=== PATIENT | male | born 1965 | race Caucasian/White ===

== ENCOUNTER 2018-01-24 10:18 | Outpatient (CLI) | payer MEDICAID, SELFPAY ==
[2018-01-24] MEDS: Omnipaque 300 MG/ML 10 ML BTL IJ (11:18)
[2018-01-24] MEDS: Bupivacaine 0.5% Pres-Free 10 ML VIAL 5 ML IJ (11:18)
[2018-01-24] MEDS: methylPREDNISolone ACETATE 80 MG/ML VIAL IM (11:19)
--- NOTE | 2018-01-24 12:20 | W.PROCNOTE ---
Date of service: 01/24/18 Time of Service: 10:48 Procedure Note Date of procedure: 01/24/18 Procedure: Left Hip Injection with Fluoroscopic Guidance Surgeon/Proceduralist/Physician: Juan Pablo Carcamo Procedure Diagnosis: Left Hip Osteoarthritis Procedure Indications: Jay has had persistent pain of the LEFT hip and groin. Noninvasive measures have been tried. Jay had a previous injection which provided significant relief for a duration of time. He has been trying to deal with the pain conservatively but now is limited in all aspects of his life. A re-injection under fluoroscopy was recommended. I had discussed the risks of the procedure and the patient elected to proceed. Procedure Description: Jay was greeted in the flouroscopy room. The correct side was identified and the consent was reviewed with the patient and signed. The patient was then placed in the supine position on the fluoroscopy table. The LEFT hip was then prepped with Chloraprep. The anterolateral injection starting point was identiifed by bony landmarks and fluoroscopy. The skin and soft tissue in the tract of the injection was anesthetized with 1% Lidocaine. A spinal needle was then inserted deep into the hip joint at the level of the lateral femoral neck under fluoroscopic guidance. A small amount of Omnipaque solution was injected to confirm intraarticular placement. Once confirmed, the hip was injected with 6cc of 0.5% Bupivicaine and 80mg of Depo-Medrol. A bandaid was placed on the injection site. The patient tolerated the procedure well and noted improvement in pre-injection pain.
== END 2018-01-24 10:38 ==
PROVIDERS: PCP Emergency Medicine; Visit Provider Student in an Organized Health Care Education/Training Program
DX: M25.552 Pain in left hip (principal); M16.12 Unilateral primary osteoarthritis, left hip
CPT/HCPCS: 20610; 77002; J1040

== ENCOUNTER 2018-06-06 15:40 | Outpatient (CLI) | payer MEDICAID, SELFPAY ==
[2018-06-06 15:54] LABS: HCT 43.2 % (40.0-50.0); HGB 14.6 g/dL (13.5-17.5); Mean Corp. HGB Concentration 33.8 g/dL (32.0-36.0); Mean Corpuscular Hemoglobin 28.7 pg (27.0-33.0); Mean Corpuscular Volume 84.9 fL (80-95); Mean Platelet Volume 11.4 fL (8.0-11.0); Platelet Count 202 x1000/uL (130-400); RBC 5.09 m/cumm (4.50-6.00); RBC Distribution Width 12.8 % (11.8-14.1); White Blood Cell Count 5.96 k/cumm (4.4-10.8)
[2018-06-06 17:04] LABS: BUN 24 mg/dL (7-18); CREATININE 1.61 mg/dL (0.70-1.30); Chloride 103 mmol/L (98-107); Cholesterol 249 mg/dL (50-200); Estimated GFR 45.29 (mL/min/1.73m2); Glucose 96 mg/dL (70-100); HDL Cholesterol 47 mg/dL (40-60); LDL CHOLESTEROL 165 mg/dL (<100); Potassium 4.1 mmol/L (3.5-5.1); Sodium 141 mmol/L (136-145); Triglyceride 345 mg/dL (30-150)
== END 2018-06-06 16:00 ==
PROVIDERS: PCP Emergency Medicine; Visit Provider Emergency Medicine
DX: I10 Essential (primary) hypertension (principal); Z82.49 Family history of ischemic heart disease and other diseases of the circulatory system
CPT/HCPCS: 36415; 80048; 80061; 83721; 85027

== ENCOUNTER 2018-06-12 00:13 | Outpatient (CLI) | payer MEDICAID, SELFPAY ==
--- NOTE | 2018-06-12 06:47 | MERGEMPI_ITS ---
*[facility]* *[facility]* [address] [place] [address] Myocardial Perfusion Imaging - SPECT Charles protocol Date of study: 06/12/2018 (Report amended ) *PATIENT PRESENTATION* Height: 182.9cm (72in) Blood Pressure: Weight: 86.4kg (190lb) BSA: 2.1m^2 Referring physician: Brandon Dugan Ordering physician: Virgilio Matthews Impressions: - Normal perfusion by Tc99m Sestamibi Imaging. - Abnormal contraction consistent with cardiomyopathy. Summary: 1. Myocardial perfusion imaging: No myocardial perfusion defects noted. 2. The calculated left ventricular ejection fraction after stress: 42%. LV global systolic function is mild to moderately reduced. Diffuse left ventricular regional motion abnormalities. 3. Stress ECG conclusions: The stress ECG is negative. Douglas treadmill score: 13. This score predicts a low risk of cardiac events. 4. Stress: The target heart rate was achieved. The heart rate response to stress is normal. There is a normal resting blood pressure with an appropriate response to stress. The patient experienced no chest pain during stress. Exercise capacity is above normal for age. 5. Treadmill exercise testing was performed using the Charles protocol. The patient exercised for 13 min 17 sec, to protocol stage 4, to a maximal work rate of 14.4mets. Exercise was terminated due to fatigue. Recommendations: Transthoracic echocardiography should be performed in order to evaluate LV function. Indication: R07.9. 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 HE IS PHYSICALLY ACTIVE. PT EXPERIENCED AN EPISODE OF SUBSTERNAL CHEST PRESSURE WITH RADIATION DOWN THE LEFT ARM ASSOCIATED WITH LIGHTHEADED NESS AND DIZZYNESS AFTER A [employer]ING DAY ABOUT 3 WEEKS AGO. HE HAS HAD NO FURTHER EPISODES SINCE. Risk factors: PATIENT FATHER AT AGE 66 OF AN HI. Family history of coronary artery disease. Dyslipidemia. Cholesterol: 262mg/dl. HDL: 47mg/dl. LDL: 165mg/dl. Triglycerides: 345mg/dl. ALLERGIES: NO KNOWN ALLERGIES. MEDICATIONS: ASPIRIN 81 MG DAILY. ROSUVASTATIN 10 MG DAILY. Imaging Technique: Protocol: Charles protocol. Acquisition: Gated SPECT; 1 day - rest/stress. The patient was imaged in the supine position. Attenuation correction used. Isotope administration: - Rest. Tc[99m]-sestamibi. Dose: 10.4mCi. Injection time: 11:30 AM. Injection to stress time: 00:45. - Stress. Tc[99m]-sestamibi. Dose: 32mCi. Injection time: 01:40 PM. 1-2 min before end of exercise Baseline ECG: SINUS BRADYCARDIA. HR 51 BPM. Sinus bradycardia. Stress protocol: + +--+ + !Stage !HR!BP (mmHg) ! + +--+ + !Baseline supine !51!140/90 (107)! + +--+ + !Baseline standing!59!140/88 (105)! + +--+ + * Stress results: Maximal heart rate during stress was 167bpm (99% of maximal predicted heart rate). The maximal predicted heart rate was 168bpm. The target heart rate was achieved. The heart rate response to stress is normal. There is a normal resting blood pressure with an appropriate response to stress. The rate-pressure product for the peak heart rate and blood pressure was 8260mm Hg/min. The patient experienced no chest pain during stress. Exercise capacity is above normal for age. Stress ECG: TREADMILL PORTION OF STRESS TEST ENDED IN 13 MINUTES & 17 SECONDS DUE TO FATIGUE. NORMAL HEART RATE AND BLOOD PRESSURE RESPONSE TO EXERCISE. MAX HR = 167 % OF TARGET = 99 NO ECTOPY APPROXIMATE METS ACHIEVED = 14.35 [address] UPWARD SLOPING [address] SEGMENT DEPRESSIONS IN LEADS V3, V4, V5 & V6 DURING PEAK EXERCISE & RETURNED TO BASELINE UPON IMMEDIATE RECOVERY. ABOVE AVERAGE FUNCTIONAL CAPACITY FOR EXERCISE. The stress ECG is negative. Douglas treadmill score: 13. This score predicts a low risk of cardiac events. Myocardial perfusion: Imaging information: gated. Left ventricular size is normal. No myocardial perfusion defects noted. Ventricular Function (Wall Motion): The calculated left ventricular ejection fraction after stress: 42%. LV global systolic function is mild to moderately reduced. Diffuse left ventricular regional motion abnormalities. Study data: Brandon Dugan MD supervised and was readily available during the procedure. This study was interpreted by [facility]. Study status: Routine. Consent: The risks, benefits, and alternatives to the procedure were explained to the patient and informed consent was obtained. Procedure: Initial setup. A baseline ECG was recorded. Surface ECG leads and manual cuff blood pressure measurements were monitored. Heart sounds: Normal. Lung sounds: Normal. Treadmill exercise testing was performed using the Charles protocol. The patient exercised for 13 min 17 sec, to protocol stage 4, to a maximal work rate of 14.4mets. Exercise was terminated due to fatigue. Study completion: All catheters inserted during the procedure were removed. The patient tolerated the procedure well and was discharged from the lab. Discharge: The patient left the laboratory in stable condition. Birthdate: Patient birthdate: 1965. Sex: Gender: male. Study date: Study date: 06/12/2018. Study time: 00:01 AM. Signature Documentation: - The imaging portion of this study was interpreted by [facility] [employer] Brandon Dugan MD. - The Stress ECG portion of this study was interpreted by Brandon Dugan MD. Electronically signed by Brandon Dugan 06/12/2018 16:06
== END 2018-06-12 00:33 ==
PROVIDERS: PCP Emergency Medicine; Visit Provider Emergency Medicine
DX: R07.9 Chest pain, unspecified (principal); I42.9 Cardiomyopathy, unspecified; I10 Essential (primary) hypertension; E78.5 Hyperlipidemia, unspecified; Z82.49 Family history of ischemic heart disease and other diseases of the circulatory system
CPT/HCPCS: 78452; 93017

== ENCOUNTER 2018-06-18 11:41 | Outpatient (CLI) | payer MEDICAID, SELFPAY ==
[2018-06-18 12:45] LABS: Abs Immature Grans 0.01 k/cumm (0.0-0.09); Absolute Basophil Count 0.02 k/cumm (0.0-0.2); Absolute Eosinophil Count 0.06 k/cumm (0.0-0.7); Absolute Lymphocyte Count 1.19 k/cumm (1.2-3.4); Absolute Monocyte Count 0.32 k/cumm (0.11-0.7); Absolute Neutrophil Count 3.38 k/cumm (1.2-6.7); Basophils % 0.4; Eosinophils % 1.2; HCT 44.2 % (40.0-50.0); Immature Grans % 0.2; Lymphocytes % 23.9; Mean Corp. HGB Concentration 33.9 g/dL (32.0-36.0); Mean Corpuscular Hemoglobin 28.7 pg (27.0-33.0); Mean Corpuscular Volume 84.7 fL (80-95); Mean Platelet Volume 11.8 fL (8.0-11.0); Monocytes % 6.4; Neutrophils % 67.9; Platelet Count 203 x1000/uL (130-400); RBC 5.22 m/cumm (4.50-6.00); RBC Distribution Width 12.8 % (11.8-14.1); White Blood Cell Count 4.98 k/cumm (4.4-10.8)
[2018-06-18 13:20] LABS: D-Dimer 496 ng/mlFEU (<500)
[2018-06-18 13:42] LABS: ALT 25 U/L (12-78); AST 19 U/L (15-37); Albumin 4.1 g/dL (3.4-5.0); Alkaline Phosphatase 57 U/L (46-116); Anion Gap 9.6 mmol/L (3-11); BUN 22 mg/dL (7-18); Bilirubin, Total 0.6 mg/dL (0.2-1.0); CO2 27.4 mmol/L (21.0-32.0); CREATININE 1.08 mg/dL (0.70-1.30); Calcium 9.4 mg/dL (8.5-10.1); Chloride 102 mmol/L (98-107); Ferritin 83 ng/mL (8-388); Glucose 102 mg/dL (70-100); Potassium 4.1 mmol/L (3.5-5.1); Sodium 139 mmol/L (136-145); Total Protein 7.1 g/dL (6.4-8.2); Vitamin B12 445 pg/mL (193-986)
[2018-06-18 13:44] LABS: ESR 9 MM/HR (1-20)
[2018-06-18 14:10] LABS: NT-proBNP 19 pg/mL
[2018-06-18 14:12] LABS: C-Reactive Protein < 0.05 mg/dL (0.0-0.3)
== END 2018-06-18 12:01 ==
PROVIDERS: PCP Emergency Medicine; Visit Provider Emergency Medicine
DX: I42.9 Cardiomyopathy, unspecified (principal); E03.9 Hypothyroidism, unspecified; I50.9 Heart failure, unspecified; L65.9 Nonscarring hair loss, unspecified
CPT/HCPCS: 36415; 80053; 85652; 82607; 82728; 83880; 84443; 85025; 85379; 86140

== ENCOUNTER 2018-06-21 00:20 | Outpatient (CLI) | payer MEDICAID, SELFPAY ==
--- NOTE | 2018-06-21 13:55 | MERGE_ITS ---
*The * *[facility]* [address] [place] [address] Date of study: 06/21/2018 Transthoracic Echocardiography M-mode, complete 2D, complete spectral Doppler, and color Doppler *STUDY CONCLUSIONS* Summary: 1. Left ventricle: The cavity size was normal. Wall thickness was normal. Systolic function was at the lower limits of normal. The estimated ejection fraction was 50-55%. Wall motion was normal; there were no regional wall motion abnormalities. 2. Right ventricle: The cavity size was normal. Systolic function was normal. 3. Aortic valve: There was trivial regurgitation. 4. Mitral valve: Mildly calcified annulus. Mildly thickened leaflets. There was mild regurgitation. 5. Pulmonary arteries: Pulmonary systolic pressure was within the normal range, in the range of 25mm Hg to 30mm Hg. 6. Inferior vena cava: The vessel was patent and normal in size. The respirophasic diameter changes were in the normal range (greater than or equal to 50%), consistent with normal central venous pressure. *PATIENT PRESENTATION* Height: 182.9cm ((72in) ) S/D Pressure: 133 / 82 Weight: 88.5kg ((194.6lb) ) BSA: 2.13m^2 Test start time: 02:00 PM. Test stop time: 03:10 PM. ORDERING Virgilio Matthews REFERRING Virgilio Matthews PERFORMING Unknown PERFORMING [facility] FLOW MANAGER Benita Urias, (R)(CT), [facility] REFERRING Do Byron Eid *PROCEDURE DATA* Procedure information: The patient was identified by two identifiers. This study was interpreted by [facility]. Pertinent images and digital data are archived for permanent storage and are available for subsequent review. No prior study was available for comparison. Study status: Routine. Transthoracic echocardiography. M-mode, complete 2D, complete spectral Doppler, and color Doppler. A Transthoracic Echocardiogram was performed. Scanning was performed from the parasternal, apical, subcostal, and suprasternal notch acoustic windows. Images were obtained using an [id number] cardiac ultrasound machine. Image quality was adequate. Study completion: The patient tolerated the procedure well. There were no complications. History: PMH: Cardiomyopathy i42.9 *CARDIAC ANATOMY* Left ventricle: The cavity size was normal. Wall thickness was normal. Systolic function was at the lower limits of normal. The estimated ejection fraction was 50-55%. Wall motion was normal; there were no regional wall motion abnormalities. Aortic valve: Trileaflet; normal thickness leaflets. Mobility was not restricted. Doppler: Transvalvular velocity was within the normal range. There was no stenosis. There was trivial regurgitation. VTI ratio of LVOT to aortic valve: 0.79. Valve area (VTI): 2.7cm^2. Indexed valve area (VTI): 1.3cm^2/m^2. Peak velocity ratio of LVOT to aortic valve: 0.86. Valve area (Vmax): 3cm^2. Indexed valve area (Vmax): 1.4cm^2/m^2. Mean velocity ratio of LVOT to aortic valve: 0.8. Valve area (Vmean): 2.8cm^2. Indexed valve area (Vmean): 1.3cm^2/m^2. Mean gradient (S): 6mm Hg. Peak gradient (S): 10.5mm Hg. Aorta: Aortic root: The aortic root was normal in size. Ascending aorta: The ascending aorta was normal in size. Mitral valve: Mildly calcified annulus. Mildly thickened leaflets. Mobility was not restricted. Doppler: Transvalvular velocity was within the normal range. There was no evidence for stenosis. There was mild regurgitation. Valve area by pressure half-time: 3.6cm^2. Indexed valve area by pressure half-time: 1.7cm^2/m^2. Left atrium: The atrium was normal in size. Right ventricle: The cavity size was normal. Systolic function was normal. Pulmonic valve: The pulmonary valve appears to be grossly normal. Doppler: Transvalvular velocity was within the normal range. There was no evidence for stenosis. There was trivial regurgitation. Tricuspid valve: Structurally normal valve. Doppler: Transvalvular velocity was within the normal range. There was no evidence for stenosis. There was trivial regurgitation. Pulmonary artery: The main pulmonary artery was normal-sized. Pulmonary systolic pressure was within the normal range, in the range of 25mm Hg to 30mm Hg. Right atrium: The atrium was normal in size. Pericardium: There was no pericardial effusion. Systemic veins: Inferior vena cava: Well visualized. The vessel was patent and normal in size. The respirophasic diameter changes were in the normal range (greater than or equal to 50%), consistent with normal central venous pressure. Baseline ECG: Sinus bradycardia. Measurements Left ventricle Value Reference LV ID, ED, PLAX 5.6 cm 3.5 - 6.0 LV ID, ES, PLAX 4.0 cm 2.1 - 4.0 LV PW thickness, ED, PLAX 1.0 cm LV end-diastolic volume, 1-p A2C 115 ml LV ejection fraction, 1-p A2C 54 % LV end-diastolic volume, 1-p A4C 141 ml LV ejection fraction, 1-p A4C 54 % LV e', lateral 0.1 m/sec LV E/e', lateral 7 LV e', medial 0.096 m/sec LV E/e', medial 7 LV e', average 0.098 m/sec LV E/e', average 7 Ventricular septum Value Reference IVS thickness, ED, PLAX 1.0 cm LVOT Value Reference LVOT ID, A-P 2.1 cm LVOT area 3.5 cm^2 LVOT peak velocity, S 1.4 m/sec LVOT mean velocity, S 0.94 m/sec LVOT VTI, S 26.0 cm LVOT peak gradient, S 7.8 mm Hg LVOT mean gradient, S 3.9 mm Hg Stroke volume (SV), LVOT DP 90 ml Stroke index (SV/bsa), LVOT DP 42 ml/m^2 Aortic valve Value Reference Aortic valve peak velocity, S 1.6 m/sec Aortic valve mean velocity, S 1.18 m/sec Aortic valve VTI, S 33.0 cm Aortic mean gradient, S 6 mm Hg Aortic peak gradient, S 10.5 mm Hg VTI ratio, LVOT/AV 0.79 Aortic valve area, VTI 2.7 cm^2 Velocity ratio, peak, LVOT/AV 0.86 Aortic valve area, peak velocity 3 cm^2 Velocity ratio, mean, LVOT/AV 0.8 Aortic valve area, mean velocity 2.8 cm^2 Aortic valve area/bsa, mean velocity 1.3 cm^2/m^2 Aorta Value Reference Aortic root ID, ED 3.3 cm Ascending aorta ID, A-P, S 3.5 cm RVOT Value Reference RVOT VTI, S 18.7 cm Left atrium Value Reference LA ID, A-P, ES 3.8 cm LA ID/bsa, A-P 1.8 cm/m^2 <=2.2 LA area, ES, A4C 22.9 cm^2 8.8 - 23.4 LA area, ES, A2C 20 cm^2 LA volume, ES, 2-p 60 ml LA volume/bsa, ES, 2-p 28 ml/m^2 LA/aortic root ratio 1.16 Mitral valve Value Reference Mitral E-wave peak velocity 0.66 m/sec Mitral A-wave peak velocity 0.57 m/sec Mitral deceleration time 212 ms 150 - 230 Mitral pressure half-time 62 ms Mitral E/A ratio, peak 1.15 Mitral valve area, PHT, DP 3.6 cm^2 Pulmonary veins Value Reference Pulmonary vein peak velocity, S 0.42 m/sec Pulmonary vein peak velocity, D 0.47 m/sec Pulmonary vein velocity ratio, peak, 0.91 S/D Pulmonary vein A-wave reversal peak 0.29 m/sec velocity Tricuspid valve Value Reference Tricuspid regurg peak velocity 2.5 m/sec Tricuspid peak RV-RA gradient 25.2 mm Hg Right atrium Value Reference RA area, ES, A4C (H) 20.7 cm^2 8.3 - 19.5 Legend: (L) and (H) kris values outside specified reference range. I have personally reviewed the images and have reviewed and edited the reported findings. Electronically signed by Basia Mueller 06/22/2018 09:56
== END 2018-06-21 00:40 ==
PROVIDERS: PCP Emergency Medicine; Visit Provider Emergency Medicine
DX: I42.9 Cardiomyopathy, unspecified (principal); R07.9 Chest pain, unspecified; I34.0 Nonrheumatic mitral (valve) insufficiency; I10 Essential (primary) hypertension
CPT/HCPCS: 93306

== ENCOUNTER 2018-07-04 15:37 | Outpatient (CLI) | payer MEDICAID, SELFPAY ==
[2018-07-04 16:19] LABS: HCT 43.3 % (40.0-50.0); HGB 14.7 g/dL (13.5-17.5); Mean Corp. HGB Concentration 33.9 g/dL (32.0-36.0); Mean Corpuscular Hemoglobin 28.5 pg (27.0-33.0); Mean Corpuscular Volume 84.1 fL (80-95); Mean Platelet Volume 11.4 fL (8.0-11.0); Platelet Count 214 x1000/uL (130-400); RBC 5.15 m/cumm (4.50-6.00); White Blood Cell Count 5.05 k/cumm (4.4-10.8)
[2018-07-04 16:51] LABS: ALT 31 U/L (12-78); AST 20 U/L (15-37); Albumin 4.1 g/dL (3.4-5.0); Alkaline Phosphatase 61 U/L (46-116); Anion Gap 9.4 mmol/L (3-11); BUN 20 mg/dL (7-18); Bilirubin, Total 0.6 mg/dL (0.2-1.0); CO2 28.6 mmol/L (21.0-32.0); CREATININE 1.18 mg/dL (0.70-1.30); Calcium 9.3 mg/dL (8.5-10.1); Chloride 103 mmol/L (98-107); Cholesterol 217 mg/dL (50-200); Glucose 88 mg/dL (70-100); HDL Cholesterol 57 mg/dL (40-60); LDL CHOLESTEROL 130 mg/dL (<100); Sodium 141 mmol/L (136-145); Total Protein 6.8 g/dL (6.4-8.2); Triglyceride 228 mg/dL (30-150)
== END 2018-07-04 15:57 ==
PROVIDERS: PCP Emergency Medicine; Visit Provider Dermatology
DX: D63.1 Anemia in chronic kidney disease (principal); N18.9 Chronic kidney disease, unspecified; Z79.899 Other long term (current) drug therapy
CPT/HCPCS: 36415; 80053; 80061; 83721; 85027

== ENCOUNTER 2018-08-15 16:39 | Outpatient (CLI) | payer MEDICAID, SELFPAY ==
[2018-08-15 17:02] LABS: Abs Immature Grans 0.01 k/cumm (0.0-0.09); Absolute Basophil Count 0.02 k/cumm (0.0-0.2); Absolute Eosinophil Count 0.08 k/cumm (0.0-0.7); Absolute Lymphocyte Count 1.69 k/cumm (1.2-3.4); Absolute Monocyte Count 0.35 k/cumm (0.11-0.7); Absolute Neutrophil Count 3.11 k/cumm (1.2-6.7); Basophils % 0.4; Eosinophils % 1.5; HCT 45.3 % (40.0-50.0); HGB 15.2 g/dL (13.5-17.5); Immature Grans % 0.2; Lymphocytes % 32.1; Mean Corp. HGB Concentration 33.6 g/dL (32.0-36.0); Mean Corpuscular Volume 83.4 fL (80-95); Mean Platelet Volume 11.1 fL (8.0-11.0); Monocytes % 6.7; Neutrophils % 59.1; Platelet Count 206 x1000/uL (130-400); RBC 5.43 m/cumm (4.50-6.00); White Blood Cell Count 5.26 k/cumm (4.4-10.8)
[2018-08-15 19:03] LABS: ALT 33 U/L (12-78); AST 22 U/L (15-37); Alkaline Phosphatase 52 U/L (46-116); Anion Gap 8.5 mmol/L (3-11); BUN 25 mg/dL (7-18); Bilirubin, Total 0.5 mg/dL (0.2-1.0); CO2 29.5 mmol/L (21.0-32.0); CREATININE 1.33 mg/dL (0.70-1.30); Calcium 9.2 mg/dL (8.5-10.1); Chloride 103 mmol/L (98-107); Estimated GFR 56.46 (mL/min/1.73m2); Glucose 87 mg/dL (70-100); Potassium 4.1 mmol/L (3.5-5.1); Sodium 141 mmol/L (136-145); Total Protein 6.7 g/dL (6.4-8.2)
== END 2018-08-15 16:59 ==
PROVIDERS: PCP Emergency Medicine; Visit Provider Dermatology
DX: Z79.899 Other long term (current) drug therapy (principal)
CPT/HCPCS: 36415; 80053; 85025

== ENCOUNTER 2018-08-22 01:33 | Outpatient (CLI) | payer MEDICAID, SELFPAY ==
--- NOTE | 2018-08-22 07:20 | DI.RAD_ITS ---
SYMPTOMS/DIAGNOSIS: LEFT HIP DEGENERATIVE JOINT DISEASE, PRIMARY OSTEOARTHRITIS, M16.12 LEFT HIP INJECTION: Fluoroscopy Time: 4 sec Fluoroscopy was utilized by Dr. Carcamo during left hip injection. Hard copy shows intraarticular injection of the left hip.
[2018-08-22] MEDS: methylPREDNISolone ACETATE 80 MG/ML VIAL IM (13:16)
[2018-08-22] MEDS: Omnipaque 300 MG/ML 10 ML BTL IJ (13:17)
[2018-08-22] MEDS: Bupivacaine 0.5% Pres-Free 10 ML VIAL 6 ML IJ (13:17)
--- NOTE | 2018-08-22 15:43 | W.PROCNOTE ---
Date of service: 08/22/18 Time of Service: 11:44 Procedure Note Date of procedure: 08/22/18 Procedure: Left Hip Injection with Fluoroscopic Guidance Surgeon/Proceduralist/Physician: Juan Pablo Carcamo Procedure Diagnosis: Left Hip Osteoarthritis Procedure Indications: Jay has had persistent pain of the LEFT hip and groin. Noninvasive measures have been tried. He has had previous injections of the left hip with good results. Since his pain has returned, an injection under fluoroscopy was recommended. I had discussed the risks of the procedure and the patient elected to proceed. Procedure Description: Jay was greeted in the flouroscopy room. The correct side was identified and the consent was reviewed with the patient and signed. The patient was then placed in the supine position on the fluoroscopy table. The LEFT hip was then prepped with Chloraprep. The anterolateral injection starting point was identiifed by bony landmarks and fluoroscopy. The skin and soft tissue in the tract of the injection was anesthetized with 1% Lidocaine. A spinal needle was then inserted deep into the hip joint at the level of the lateral femoral neck under fluoroscopic guidance. A small amount of Omnipaque solution was injected to confirm intraarticular placement. Once confirmed, the hip was injected with 6cc of 0.5% Bupivicaine and 80mg of Depo-Medrol. A bandaid was placed on the injection site. The patient tolerated the procedure well and noted improvement in pre-injection pain.
== END 2018-08-22 01:53 ==
PROVIDERS: PCP Emergency Medicine; Visit Provider Student in an Organized Health Care Education/Training Program
DX: M16.12 Unilateral primary osteoarthritis, left hip (principal); M25.552 Pain in left hip
CPT/HCPCS: 20610; 77002; J1040

== ENCOUNTER 2018-11-11 14:31 | Outpatient (CLI) | payer MEDICAID, SELFPAY ==
[2018-11-11 15:24] LABS: Absolute Basophil Count 0.03 k/cumm (0.0-0.2); Absolute Eosinophil Count 0.05 k/cumm (0.0-0.7); Absolute Lymphocyte Count 1.36 k/cumm (1.2-3.4); Absolute Neutrophil Count 3.44 k/cumm (1.2-6.7); Basophils % 0.6; Eosinophils % 0.9; HCT 41.7 % (40.0-50.0); HGB 14.4 g/dL (13.5-17.5); Lymphocytes % 25.8; Mean Corp. HGB Concentration 34.5 g/dL (32.0-36.0); Mean Corpuscular Hemoglobin 29.7 pg (27.0-33.0); Mean Platelet Volume 11.7 fL (8.0-11.0); Monocytes % 7.6; Neutrophils % 65.1; Platelet Count 213 x1000/uL (130-400); RBC 4.85 m/cumm (4.50-6.00); RBC Distribution Width 13.3 % (11.8-14.1); White Blood Cell Count 5.28 k/cumm (4.4-10.8)
[2018-11-11 16:31] LABS: ALT 31 U/L (12-78); AST 21 U/L (15-37); Albumin 3.8 g/dL (3.4-5.0); Alkaline Phosphatase 51 U/L (46-116); Anion Gap 11.1 mmol/L (3-11); BUN 22 mg/dL (7-18); Bilirubin, Total 0.5 mg/dL (0.2-1.0); CO2 23.9 mmol/L (21.0-32.0); CREATININE 1.12 mg/dL (0.70-1.30); Calcium 8.6 mg/dL (8.5-10.1); Calculated LDL 180 mg/dL; Chloride 106 mmol/L (98-107); Cholesterol 297 mg/dL (50-200); Glucose 105 mg/dL (70-100); HDL Cholesterol 46 mg/dL (40-60); Potassium 4.1 mmol/L (3.5-5.1); Sodium 141 mmol/L (136-145); Total Protein 6.5 g/dL (6.4-8.2); Triglyceride 356 mg/dL (30-150)
== END 2018-11-11 14:51 ==
PROVIDERS: PCP Emergency Medicine; Visit Provider Dermatology
DX: Z79.899 Other long term (current) drug therapy (principal)
CPT/HCPCS: 36415; 80053; 80061; 83721; 85025

== ENCOUNTER 2018-11-21 01:32 | Outpatient (CLI) | payer MEDICAID, SELFPAY ==
--- NOTE | 2018-11-21 07:08 | DI.RAD_ITS ---
SYMPTOM/DIAGNOSIS: LT HIP INJECTION, ARTHRITIS LT HIP, M16.12 FLUOROSCOPY: Fluoroscopy Time: 10.6 seconds Fluoroscopy was utilized by Dr. Carcamo during hip injection. Hard copy shows needle in place with intra-articular injection in the left hip.
--- NOTE | 2018-11-21 09:37 | W.PROCNOTE ---
Date of service: 11/21/18 Time of Service: 09:38 Procedure Note Date of procedure: 11/21/18 Procedure: Left Hip Injection with Fluoroscopic Guidance Surgeon/Proceduralist/Physician: Juan Pablo Carcamo Procedure Diagnosis: Left Hip Osteoarthritis Procedure Indications: Jay has had persistent pain of the LEFT hip and groin. Noninvasive measures have been tried. He has had an acute exacerbation of pain in the hip and to treat the pain an injection under fluoroscopy was recommended. I had discussed the risks of the procedure and the patient elected to proceed. Procedure Description: Jay was greeted in the flouroscopy room. The correct side was identified and the consent was reviewed with the patient and signed. The patient was then placed in the supine position on the fluoroscopy table. The LEFT hip was then prepped with Chloraprep. The anterolateral injection starting point was identiifed by bony landmarks and fluoroscopy. The skin and soft tissue in the tract of the injection was anesthetized with 1% Lidocaine. A spinal needle was then inserted deep into the hip joint at the level of the lateral femoral neck under fluoroscopic guidance. A small amount of Omnipaque solution was injected to confirm intraarticular placement. Once confirmed, the hip was injected with 6cc of 0.5% Bupivicaine and 80mg of Depo-Medrol. A bandaid was placed on the injection site. The patient tolerated the procedure well and noted improvement in pre-injection pain.
[2018-11-21] MEDS: Omnipaque 300 MG/ML 10 ML BTL IJ (10:32)
[2018-11-21] MEDS: Bupivacaine 0.5% Pres-Free 10 ML VIAL 6 ML IJ (10:33)
[2018-11-21] MEDS: methylPREDNISolone ACETATE 80 MG/ML VIAL IM (10:34)
== END 2018-11-21 01:52 ==
PROVIDERS: PCP Emergency Medicine; Visit Provider Student in an Organized Health Care Education/Training Program
DX: M16.12 Unilateral primary osteoarthritis, left hip (principal); M25.552 Pain in left hip
CPT/HCPCS: 20610; 77002; J1040

== ENCOUNTER 2019-02-04 13:46 | Outpatient (CLI) | payer MEDICAID, SELFPAY ==
--- NOTE | 2019-02-04 13:20 | DI.RAD_ITS ---
EXAM: XR PELVIS AP INDICATION: preop planning. TECHNIQUE: 2D digital imaging was performed. FINDINGS: The right hip joint space is well maintained. There is moderate narrowing of the left hip joint spac e and periarticular sclerosis. Subchondral cysts and periarticular spurring are seen. Findings appe ar to have progressed somewhat when compared with the previous exam. IMPRESSION: Moderate to severe degenerative changes of the left hip.
== END 2019-02-04 14:06 ==
PROVIDERS: PCP Emergency Medicine; Visit Provider Physician Assistant
DX: M25.552 Pain in left hip (principal); M16.12 Unilateral primary osteoarthritis, left hip
CPT/HCPCS: 72170

== ENCOUNTER 2019-02-04 14:07 | Outpatient (CLI) | payer MEDICAID, SELFPAY ==
--- NOTE | 2019-02-04 13:15 | W.PREOPHP ---
Assessment and Plan Assessment and plan (1) Degenerative joint disease of left hip: Status: Chronic Assessment and plan: Plan: AP pelvis x-ray with mag marker was ordered for preoperative planning. Patient is a reliable historian and denies any areas of skin breakdown along the left groin and anterior leg. Educated patient that if they develop any lesions, redness or skin breakdown to contact office as skin concerns would be a reason to cancel surgery. Patient gives verbal understanding. Educated patient on surgery covering surgical technique via models, recovery process, benefits and risks including but not limited to risk of infection, blood clot, fracture, numbness/tingling, damage to soft tissue/blood vessels/nerves in detail. After discussion patient gives verbal understanding of risks and elects to proceed with scheduling surgery. Patient had opportunity to have questions answered to their satisfaction. They will contact office if issues arise. Patient will continue to be scheduled for left total hip replacement with Dr. Carcamo. Qualifiers: Osteoarthritis type: primary Qualified Code(s): M16.12 - Unilateral primary osteoarthritis, left hip History of Present Illness Narrative: Mr. Wiseman is a 53-year-old male who presents to clinic for pre-operative visit for scheduled left DRU. Patient has been seen in clinic multiple times for complaints of left hip pain. He has previously undergone several left hip injections under fluroscopy by Dr. Carcamo. Initially he reported pain relief with injections, unfortunately patient's last injection received in November provided pain relief for less than a month. He has adapted to avoid left hip pain by restricting his physical activity including running. 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 Pain is reported as intermittent severe sharp pain along his anterior groin with radiation to the buttocks. Pain is aggravated with flexion including prolonged walking, hiking, getting into his logging equipment, and landing on his left leg during exercises. Denies any leg length discrepancy. Denies any numbness or tingling. Due to his continued pain despite conservative treatments he was offered surgical intervention and was eager to proceed. Pertinent Surgical Information Patient was diagnosed with cardiomyopathy following an episode of chest pain while cross country skiing in May 2018. Review of patient's PCP note from Dr. Matthews on 06/18/18 states MPI showed no obstructive disease; ejection fraction of 42% consistent with cardiomyopathy. Patient reports he has not re-experienced any chest pain. Since that episode he has been managed with rosuvastatin. He continues to be very active; has recently given up running due to severe left hip pain. [place] [facility] [place]. He is currently on tofacitinib (synthetic DMARD) as per current recommendations educated patient to stop medication for 1 week prior to surgery (he should stop medication today). If patient is doing well (i.e. no wound or infection concerns) then he will resume his medication 14 days post-operatively. Denies past medical history of: Hypertension, stroke, asthma, COPD, sleep apnea, renal issues, liver issues, hepatitis, gastrointestinal issues, ulcers, bleeding disorders, seizures, migraines, anxiety, depression, diabetes, thyroid issues. Denies prior complications from surgery or anesthesia. Review of Systems Constitutional Constitutional: Denies fever(s), Denies frequent falls and Denies headache(s) Eyes Eyes: Denies change in vision ENT Ears, Nose, Mouth, and Throat: Denies dizziness, Denies ear discharge, Denies headache(s), Denies epistaxis, Denies nasal discharge and Denies sore throat Cardiovascular Cardiovascular: Denies chest pain, Denies rapid heart rate, Denies irregular heart rhythm, Denies palpitations, Denies dyspnea, Denies dyspnea on exertion, Denies orthopnea, Denies paroxysmal nocturnal dyspnea and Denies slow heart rate Respiratory Respiratory: Denies cough, Denies dyspnea, Denies dyspnea on exertion and Denies wheezing Gastrointestinal Gastrointestinal: Denies abdominal pain, Denies melena, Denies hematochezia, Denies constipation, Denies diarrhea, Denies nausea and Denies vomiting Genitourinary Genitourinary: Denies hematuria, Denies dysuria and Denies urinary urgency Musculoskeletal Musculoskeletal: Reports as per HPI, Denies numbness and Denies tingling Neurologic Neurologic: Denies dizziness, Denies frequent falls, Denies headache(s), Denies numbness and Denies tingling Psychiatric Psychiatric: Denies anxiety and Denies depression Endocrine Endocrine: Denies palpitations Allergic/Immunologic Allergic/Immunologic: Denies wheezing [facility] Medical History (Updated 02/04/19 @ 13:26 by Michelle Palacios) Alopecia (Chronic) Cardiomyopathy (Chronic) 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) Surgical History (Updated 02/04/19 @ 13:26 by Michelle Palacios) Status post arthroscopy of right knee (Acute) Family History Father Myocardial infarction Social History (Updated 02/04/19 @ 13:29 by Michelle Palacios) Smoking/Tobacco Use Status: Former Tobacco Use Quit Date: 09/14/00 Pack-years: 10 Alcohol Intake: current Alcohol Intake frequency: a few times a week Alcohol type: beer Drug use: Never Substance use type: does not use Current gender identity: male Do you feel safe in your relationship?: Yes Meds Home Medications and Allergies Home Medications Medication Instructions Recorded Confirmed Type rosuvastatin 10 mg tablet 10 mg PO DAILY #90 tab 11/26/18 02/04/19 Rx tofacitinib 5 mg tablet 5 mg PO BID 02/04/19 02/04/19 History Allergies Allergy/AdvReac Type Severity Reaction Status Date / Time atorvastatin AdvReac Mild Verified 02/04/19 13:30 Exam Const General: cooperative and no acute distress HENMT Head: normal to inspection, normocephalic and atraumatic Ears: external ears normal General nose exam: external nose normal and no nasal discharge Face and sinus: face symmetric Mouth: oral mucosae normal, lip normal, tongue normal and moist mucous membranes Teeth and gingiva: dentition normal Throat: posterior oropharynx normal Eyes General: appearance normal, both eyes and all related structures Pupils: PERRL EOM: EOM intact bilaterally Neck Neck: trachea midline Carotids: normal carotid upstroke Lymphatic: no lymphadenopathy noted Resp Effort & Inspection: normal respiratory effort and able to speak in complete sentences Auscultation: clear to auscultation bilaterally, no rales, no rhonchi and no wheezes Cardio Heart Sounds: S1 normal, S2 normal and no murmurs Pulses: radial pulses present bilaterally GI Palpation: soft, no hepatosplenomegaly and nontender Auscultation: normal bowel sounds Skin General skin exam: no rashes or lesions noted
[2019-02-04 15:42] LABS: Anion Gap 6.9 mmol/L (3-11); BUN 16 mg/dL (7-18); CO2 31.1 mmol/L (21.0-32.0); CREATININE 1.16 mg/dL (0.70-1.30); Calcium 8.9 mg/dL (8.5-10.1); Chloride 103 mmol/L (98-107); Glucose 100 mg/dL (70-100); Potassium 4.5 mmol/L (3.5-5.1); Sodium 141 mmol/L (136-145)
[2019-02-04 15:55] LABS: HCT 43.4 % (40.0-50.0); HGB 14.5 g/dL (13.5-17.5); Mean Corp. HGB Concentration 33.4 g/dL (32.0-36.0); Mean Corpuscular Hemoglobin 28.8 pg (27.0-33.0); Mean Corpuscular Volume 86.1 fL (80-95); Mean Platelet Volume 11.7 fL (8.0-11.0); Platelet Count 198 x1000/uL (130-400); RBC 5.04 m/cumm (4.50-6.00); RBC Distribution Width 13.1 % (11.8-14.1); White Blood Cell Count 3.69 k/cumm (4.4-10.8)
== END 2019-02-04 14:27 ==
PROVIDERS: PCP Emergency Medicine; Visit Provider Student in an Organized Health Care Education/Training Program
DX: M25.552 Pain in left hip (principal); M16.12 Unilateral primary osteoarthritis, left hip; Z01.818 Encounter for other preprocedural examination; Z01.812 Encounter for preprocedural laboratory examination
CPT/HCPCS: 36415; 80048; 85027; 86850; 86900; 86901; NC; 72170

== ENCOUNTER 2019-02-12 07:35 | Inpatient (IN) | payer MEDICAID, SELFPAY ==
[2019-02-12] VITALS (8 sets, daily range): BP systolic 117–152; BP diastolic 68–88; PULSE 47–61; RESP 12–18; TEMP 36.4–36.6; O2SAT 96–99
[2019-02-12] MEDS: Acetaminophen 500 MG TAB 1000 MG PO (06:34)
[2019-02-12] MEDS: Celecoxib 200 MG CAP 400 MG PO (06:35)
[2019-02-12] MEDS: Lactated Ringers 1,000 ML 80 ML IV ×2 (06:35→10:46)
--- NOTE | 2019-02-12 07:14 | DI.RAD_ITS ---
EXAM: XR HIP LT IN OR CLINICAL HISTORY: Degenerative joint disease of left hip. TECHNIQUE: 2D digital imaging was performed. COMPARISON: XR PELVIS AP from 02/04/2019 FINDINGS: Fluoroscopy was utilized by Dr. Carcamo in the operating room during a left total hip replacement. Orthopedic hardware appears in good position. Please refer to the procedure report for complete deta ils. FLUORO TIME: 47.8 seconds
[2019-02-12] MEDS: ceFAZolin 2 GM/50 ML BAG IVPB (07:40)
[2019-02-12] MEDS: Bupivacaine 0.25% Pres-Free 10 ML VIAL (09:17)
[2019-02-12] MEDS: Ketorolac 30 MG/ML VIAL (09:17)
[2019-02-12] MEDS: Normal Saline 50 ML (09:17)
[2019-02-12] MEDS: Normal Saline Flush 10 ML SYR IV (10:49)
--- NOTE | 2019-02-12 11:16 | W.PM.DS.N ---
Date of service: 02/12/19 Time of Service: 11:17 DS: Diagnosis Discharge Diagnosis (1) Degenerative joint disease of left hip: Status: Chronic Discharge Plan Disposition Patient Disposition: HOME Condition: Good Discharge Details Reason For Visit: LEFT HIP DJD Admit Date/Time: 02/12/19 07:35 Admit Provider: Juan Pablo Carcamo Attending Provider: Juan Pablo Carcamo Primary Care Provider: Virgilio Matthews Hospital Course Hospital Course: Patient was admitted to the medical/surgical floor following the procedure. It was tolerated well without any notable medical, surgical, or anesthetic complications. Mobilization began postoperatively. The asencio catheter was removed and voiding spontaneously. Vitals were stable. Physical therapy worked with the patient and was cleared for discharge home. No acute medical issues. Home Meds and New Rx's Prescriptions: Continued rosuvastatin [Crestor] 10 mg tablet 10 mg PO DAILY Qty: 90 RF: 3 oxycodone 5 mg tablet 5 mg PO Q4H MDD 30mg PRN (Reason: pain) Qty: 10 RF: 0 acetaminophen 500 mg tablet 1,000 mg PO Q8H PRN PRN (Reason: pain) Qty: 90 RF: 0 ibuprofen 600 mg tablet 600 mg PO Q6H PRN (Reason: pain) Qty: 90 RF: 0 aspirin [Aspir-81] 81 mg tablet,delayed release (DR/EC) 81 mg PO BID Qty: 60 RF: 0 pantoprazole 40 mg tablet,delayed release (DR/EC) 40 mg PO DAILY Qty: 30 RF: 0 Discontinued Xeljanz 5 mg tablet 5 mg PO BID RF: 0 Discharge Instructions Additional Instructions: Dr. Carcamo?s Total Hip Discharge Instructions Activity: The most important activity is to walk. You should try to take short walks a few times a day. You have no restrictions on movement or positioning, but do not try to force what you do. You will find some stiffness and weakness with hip flexion (lifting your knee). Do not try to strengthen this too early, continue to practice walking and stairs and this will come. - Outpatient physical therapy can be helpful to help return you to a normal gait and improve your flexibility and strength. This can start around 2 weeks. For some patients, it?s not necessary. Usually this is determined at the time of discharge or at the first post-operative visit. - You should wear the MARILU hose on both legs for 2 weeks. Dressing: Keep the surgical dressing in place for at least one week. After the first week it may be removed and replace with light gauze and tape or nothing. It may get wet after 3 days but avoid soaking the dressing. If it gets wet, just lightly pat dry. It is important to always keep some gauze between skin folds, especially when you are sitting. Spend some time with the wound exposed when you are lying flat as the incision does wrinkle onto itself. Medications: - You should take Tylenol and an anti-inflammatory Celebrex as your primary pain control medications - You have been prescribed a stronger pain medication Oxycodone for breakthrough pain, take as needed as prescribed. - You have also been prescribed a stomach acid reduction agent Pantoprozole to help reduce stomach acid and reflux. - You will be taking Aspirin 81mg twice a day for DVT prevention unless instructed otherwise. - If you have constipation you should take Colace or Miralax (both [id number]). It takes most people 3-4 days to have a bowel movement. - You should hold on taking Xeljanz for 2 weeks. You may restart it on 02/25/19. Follow-up: 2 weeks Referrals: Juan Pablo Carcamo MD [ [facility] STAFF PHYSICIAN] - Activity:: Activity as Tolerated Equipment/Supplies:: Crutches Diet:: As Tolerated Discharge Orders Discharge Orders: Discharge Order (Routine); Ordered 02/12/19 Ordered By: Juan Pablo Carcamo DS: Summary Status at Discharge Functional status at discharge: uses cane/walker Overall status at discharge: patient is progressing back to baseline Mental Status: mental status grossly normal Speech and Movement: speech and movement normal Mood: congruent mood Affect: normal affect Exam Psych Mental Status: mental status grossly normal Speech and Movement: speech and movement normal Mood: congruent mood Affect: normal affect DS: Data Vitals/I&O Vitals and I&O: Vital Signs Temperature 36.6 C 02/12/19 10:45 Temperature Source Tympanic 02/12/19 10:45 Pulse 59 L 02/12/19 10:45 Pulse Rhythm Regular 02/12/19 06:17 Respiratory Rate 17 02/12/19 10:45 Respiratory Effort Short of Breath 02/12/19 06:17 Blood Pressure 117/71 02/12/19 10:45 Pulse Oximetry 98 02/12/19 10:45 Respiratory End-tidal CO2 30 02/12/19 09:58 Oxygen Delivery Method Room Air 02/12/19 10:45 Oxygen Flow Rate 0 02/12/19 10:45 Pain Level 0 02/12/19 10:45 Intake & Output 02/11/19 02/11/19 02/12/19 11:59 23:59 11:59 Intake Total 1213.333 / 1213.333 Output Total 550 / 550 Balance 663.333 / 663.333 Weight 92.7 kg Intake: IV 1063.333 / 1063.333 Oral 150 / 150 Output: Urine 150 / 150 Estimated Blood Loss 400 / 400 Other: Urine Color Yellow Urine Appearance Clear Emesis Description None PFSH Medical History Alopecia (Chronic) Cardiomyopathy (Chronic) 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) Surgical History Status post arthroscopy of right knee (Acute) Family History Father Myocardial infarction Social History Smoking/Tobacco Use Status: Former Tobacco Use Quit Date: 09/14/00 Pack-years: 10 Alcohol Intake: current Alcohol Intake frequency: a few times a week Alcohol type: beer Drug use: Never Substance use type: does not use Current gender identity: male Do you feel safe in your relationship?: Yes
--- NOTE | 2019-02-12 12:04 | ROE_ITS ---
Date of service: 02/12/19 Time of Service: 09:57 Operative Note Operative Note DATE OF PROCEDURE: 02/12/19 PRE-OP DIAGNOSIS: Left Hip Osteoarthritis POST-OP DIAGNOSIS: same PROCEDURE: Left Anterior Total Hip Arthroplasty SURGEON: Juan Pablo Carcamo MANAGER MAIL: Michelle Palacios ANESTHESIA: spinal ESTIMATED BLOOD LOSS: 400 PATHOLOGY: none sent COMPLICATIONS: None Patient was transported to: PACU Patient's condition: stable Implants: 1. Depuy [place] Acetabular Component, 58mm 2. Depuy Acetabular Liner, [id number], +4 lateralized 3. Depuy Actis Standard Collared Femoral Stem, Size 10 4. Depuy Altrx Ceramic Femoral Head, Size 36+1.5mm Indications: I have seen Jay in clinic for symptoms of hip arthritis, confirmed with radiographic findings. Jay has exhausted nonoperative methods and was having significant limitations in daily function and desired better function and less pain. I discussed the technical details of a hip replacement. I explained the risks of the procedure to include, but not limited to, bleeding, infection, pain, stiffness, fracture, damage to nerves and vessels, damage to muscles and tendons, loosening, instability, leg length inequality, need for repeat procedure, blood clot and cardiopulmonary demise. Despite these risks, Jay elected to proceed. Findings: There was significant signs of arthritis throughout the hip with complete loss of cartilage from the superior femoral head. Procedure Description: Jay was greeted in the preoperative holding area where the correct side was identified and marked. The consent was reviewed with the patient and signed. The history and physical was updated. All questions were answered. Jay was taken back to the operating room. A spinal anesthestic was then administered. The patient was placed into the supine position on the operating room table. The patient was then positioned onto the ARCH table. Both feet were wrapped with Webrill cotton wrap along with Coban. The feet were placed in specialized boots for the ARCH table, well seated within the boot and secured. SCDs were applied. The patient was then slid down onto a peroneal post and the nonoperative leg was secured in a leg irwin attached to the table. The operative side was placed into the ARCH table attachment and bed height and positioning was secured. A preoperative AP pelvis was obtained to serve as a reference for determining leg lengths. Prophylactic antibiotics in the form of Cefazolin were administered. 1g of Tranxemic Acid was given intravenously within 30 minutes of incision. The left leg was then prepped with Chloraprep and draped in a standard fashion. A second prep was performed prior to placing the final shower-curtain type drape with Iodine impregnated skin protection. A timeout to confirm correct identity, side and site, procedure, allergies, anesthesia, and medical concerns was performed. An obliquely oriented incision was made starting lateral to the ASIS and running distal over the Tensor Fascia Elena (TFL) muscle belly toward the fibular head, approximately 10cm. The skin and soft tissue was dissected sharply, through Ml?s fascia, and to the fascia of the TFL. With the fascia and superior border of the IT band identified, the fascia was incised with a new knife just above any perforators from the IT band. The TFL muscle belly was bluntly dissected away from the fascia and moved laterally. The fat between TFL and rectus was identified to ensure the dissection was not within the TFL. Blunt dissection created space between abductors and the capsule and retractor was placed over the lateral femoral neck. The fibers of the rectus femoris tendon were identified and these were freed from the anterior capsule. A second cobra retractor was placed around the medial femoral neck. The TFL was further retracted laterally to show the deep fascia. Careful dissection through this layer identified three main crossing vessels of the lateral femoral circumflex. These were cauterized in multiple locations and then cut without any noticeable bleeding. The TFL was further released bluntly from the deep fascia to expose anterior hip capsule and fat The Jesus orthopaedic retractor was then placed beneath the TFL and against sartorius and medial soft tissues to protect and retract the soft tissues. A T-capsulotomy was then performed starting at the superior lateral acetabulum and moving distally to the intertrochanteric ridge. These capsular flaps were tagged with a No. 1 Ethibond and elevated from within. The capsular flaps were released to the shoulder of the lateral neck and to the lesser trochanter to give excellent visualization of the proximal femur. A neck osteotomy was performed using an oscillating saw based on preoperative templates. This cut started in the shoulder and of the lateral neck and exited medially. The saw was at all times directed medially to avoid injury to the greater trochanter. 6cm of traction was applied to the leg and the osteotomy opened. The femoral head was removed with a corkscrew, making sure to protect the TFL on its exit. This was measured on the back table to determing the starting reamer size. Portions of the rectus obscuring visualization were minimally elevated off the superior acetabulum. An anterior retractor was placed over the anterior wall between capsule and labrum and held with the Gripper retraction system. A posterior retractor was placed similarly. This provided excellent visualization. The contents of the cotyloid fossa were removed with electrocautery and the labrum was removed with a knife. Acetabular reaming began with a 52mm reamer. This first reaming was directed anterior to posterior and medial to get down to the true floor. This was inspected and reamed until the true floor was reached. I then reamed sequentially up to a 58mm reamer where good fit was obtained. The larger reamers were oriented based on anatomical reference of the anterior and lateral delacruz to ensure proper abduction and anteversion. Positioning and size was confirmed with the fluoroscopy. A 58mm Depuy [place] acetabular component was selected. The deep tissues were irrigated. The acetabular component was then impacted in a position of about 40-45 degrees of abduction and 15-20 degrees of anteversion, using the patient?s anatomy as the ultimate landmark. Fluoroscopy was used to confirm this. There was excellent trains service conductor of the acetabular component and the inserting handle was removed. The acetabular liner, Depuy 58x36+4mm polyethylene liner, was inserted and lined up with the tines of the acetabular component. There was no soft tissue interposition. The liner was then impacted into position and confirmed to be well-seated. A portion of the israel-articular cocktail was then injected around the acetabulum into the capsule and periosteum. This cocktail consisted of 50cc of 0.25% Bupivicaine and 20cc of Exparel, expanded to a total of 120cc. Traction was released from the femur. The leg was rotated to 120 degrees. Any remaining medial capsule was released until the lesser trochanter was easily palpable. A Owens retractor was placed medially. The lateral capsule was further released into the shoulder to allow access to the greater trochanter. A Owens retractor was placed over the greater trochanter which allowed the trochanter to flip in front of the capsule for excellent exposure. The leg was brought down into maximal extension and 20 degrees of adduction while ensuring there was no impingement on the acetabulum. Any remnant capsule within the trochanter was released. Piriformis and obturator externis were identified and protected. There was excellent access to the proximal femur. The lateral neck remnant was removed with a rongeur. A blunt canal probe was used to identify the canal and trajectory for later broaching. A box osteotome initiated the broach course. Broaching then began with a size 0 Actis broach. This was inserted manually around the trochanter and into the canal before mallet blows. The broach was seated to the neck cut level based on the neck cut and the preoperative template. Sequential broaching was continued until a tight fit was obtained with good rotational control of the femur. A trial standard neck was inserted along with a +1.5 trial head. The leg was brought out of extension and adduction and then reduced with traction and internal rotation. The leg was stable anteriorly in a position of 30 degrees of extension and 90 degrees of external rotation. Fluoroscopy was used to ensure there was no fracture and the stem was seated well. Leg lengths were checked with an AP pelvis and pelvic reference points. Once content with the desired offset and leg lengths, the leg was brought back into extension, external rotation and adduction. The periosteum and surrounding tissue was injected with remaining portion of the israel-articular cocktail. The proximal femur was irrigated as well as the deep tissues. The Depuy Actis Standard stem, size 10, was then manually inserted into the proximal femur making sure to control rotation. It was then malleted into position with light blows, giving breaks to allow bone expansion and decrease risk of fracture. The selected Depuy Altrx Ceramic Head, size 36+1.5mm, was then placed onto the clean and dry trunnion and secured with impaction onto the tapered fit. The leg was brought back out of extension and adduction and reduced with traction and internal rotation. Stability was confirmed with no shuck at 90 degrees of external rotation and 30 degrees of extension. No impingement through range of motion arc. Final x-ray images were obtained with fluoroscopy to confirm adequate positioning and no intraoperative fracture. The deep tissues were thoroughly irrigated with Irrisept Chlorhexadine solution. The second dose of TXA 1g was administered intravenously.The capsule was then reapproximated with the previously placed Ethibond sutures. The TFL fascia was finally closed with a No. 2 Stratafix, barbed suture. Deep tissues were then reapproximated with 0 Vicryl and a running 2-0 Vicryl. The skin was closed with a running 4-0 Monocryl in a subcuticular fashion. This was reinforced with skin glue. A Mepilex silver dressing was applied. At the end of the case, all counts were correct. Jay was transferred to the hospital bed without difficulty and suffering no apparent complication. Jay has a good prognosis. Physical therapy will start today and without restrictions, weight-bearing as tolerated. Aspirin 81mg BID will be used for DVT prophylaxis.
--- NOTE | 2019-02-12 13:04 | NUR.NOTE ---
Nursing Note: Patient admitted from PACU via his bed to Med/Surg room 205 at 1030
--- NOTE | 2019-02-12 15:41 | NUR.NOTE ---
Nursing Note: Patient declined the flu vaccination
--- NOTE | 2019-02-12 16:32 | PT.INIE ---
Date of service: 02/12/19 Time of Service: 13:29 PT Notes Inpatient Physical Therapy Evaluation Date: 02/12/2019 Referring Doctor: Juan Pablo Carcamo MD PT Orders: PT CONSULT: S/P Anterior L DRU. Going home today. Precautions: Fall. Standard. Patient Profile/Admitting Diagnosis: Patient is a 53-year-old male s/p L DRU POD 0 due to primary unilateral osteoarthritis. 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 steps to enter. Railings on both sides. He has a girlfriend who lives in [place] and who he will be staying with this evening. Equipment Owned/DME: None. Subjective: Patient denies having pain. He states he feels ready to go home. He wants to ride his mountain bike tomorrow. He feels he does not need a FWW, or any other equipment. He desires to get his asencio catheter removed. He denies headache, dizziness, lightheadedness, and is agreeable to a PT evaluation. Objective: General Observation: Patient is seen laying supine in bed. He has bilateral antithromboembolic devices on LEs, but they are disconnected. He has an IV in the R UE. Mental Status: Alert and oriented x 4 Pain: 0/10 ROM: Right Lower Extremity: Hip flexion WFL. Hip abduction WFL. Knee flexion WFL. Ankle dorsiflexion WFL. Ankle plantarflexion WFL. Left Lower Extremity: Hip flexion WFL. Hip abduction WFL. Knee flexion WFL. Ankle dorsiflexion WFL. Ankle plantarflexion WFL. Strength: Right Lower Extremity: Hip flexors 5/5. Hip abductors 5/5. Knee flexors 5/5. Knee extensors 5/5. Ankle dorsiflexors 5/5. Ankle plantarflexors 5/5. Left Lower Extremity:Hip flexors 4/5. Hip abductors 5/5. Knee flexors 5/5. Knee extensors 5/5. Ankle dorsiflexors 5/5. Ankle plantarflexors 5/5. Bed Mobility/Transfers: Rolling Independent Supine to sit Independent Sit to supine Independent Sit to stand Independent Stand to sit Independent Bed to chair Independent Chair to bed Independent Gait: Patient ambulated 120? with rolling IV pole, and CGA. He exhibited no gait deviations other than decreased stance time on L LE. Balance: Static Sitting: Normal Dynamic Sitting: Normal Static Standing: Normal Dynamic Standing: Normal Special Tests: Mobility Limitations Standardized Measure [facility] 6 clicks Basic Mobility Inpatient Short Form: Raw Score: 24 CMS Score: 0% Informed Consent/Education: Patient instructed in purpose of PT consult and plan of care. Assessment: Patient is a 53 year old male s/p L DRU POD 0 due to primary osteoarthritis. Mr. Wiseman states he does not have pain, and he is more than confident in his abilities to ambulate. He did not use an assistive device to walk, or use the stairs. He did not exhibit any gait deviations other than a slightly decreased stance time on L LE. He lives in [place] in a single-level home. His prognosis is great. Patient presents with clinical signs and symptoms consistent with current/admitting diagnoses that have resulted to mobility limitations, gait instability, generalized weakness, and impairment of motor control as demonstrated by the following impairment level findings: 1. Limitation of joint range of motion in L hip flexion Impairments are contributing to the following functional limitations: 1. Increase completion time for mobility ADL performance 2. Increased fall risk Patient is assessed as a 35877 low complexity based on the following: History: Patient is a 53-year-old male s/p L DRU POD 0 due to primary unilateral osteoarthritis. Examination: Demonstrable impairment in strength, balance, and range of motion with underlying impairments and functional limitations as documented above Presentation: Evolving Decision Makin Low complexity Goals: N/A. Patient is evaluation only. He is to go home today per orthopedic surgeon's order. Plan of Care/Treatment Plan: N/A. Patient is evaluation only. He is to go home today per orthopedic surgeon's order. DISCHARGE RECOMMENDATIONS: Patient is to be discharged to home after all of the above goals are met and he is medically stable. Crutches are recommended to use if he is in more pain in the following days. Outpatient PT is recommended in two weeks following discharge per orthopedic surgeon's order. TREATMENT CODE/TIME: 53572 x 20 minutes beginning at 1320 9 PM Thank you very much for this referral. Yoni Medeiros, [facility] In consultation with: Trudy Ocampo PT, DPT, CLT [facility]
== END 2019-02-12 15:30 | disposition home or self-care (01) | DRG 470 ==
LOC: PDS 09:32 → MS 10:33
PROVIDERS: Admitting Provider Student in an Organized Health Care Education/Training Program; PCP Emergency Medicine; Visit Provider Student in an Organized Health Care Education/Training Program
PROC: 0SRB04A Replacement of Left Hip Joint with Ceramic on Polyethylene Synthetic Substitute, Uncemented, Open Approach (ICD-10-PCS; CPT 27130; principal; 2019-02-12 07:30)
DX: M16.12 Unilateral primary osteoarthritis, left hip (principal); I42.9 Cardiomyopathy, unspecified; M25.552 Pain in left hip; Z96.642 Presence of left artificial hip joint
CPT/HCPCS: 27130; 97161; NC; 73501; J0690; J1885

== ENCOUNTER 2019-03-06 08:26 | Outpatient (CLI) | payer MEDICAID, SELFPAY ==
--- NOTE | 2019-03-06 07:58 | DI.RAD_ITS ---
EXAM: XR HIP LT COMPLETE AP PELVIS INDICATION: s/p left DRU. COMPARISON: XR PELVIS AP from 02/04/2019 XR HIP LT IN OR from 02/12/2019 TECHNIQUE: 2D digital imaging was performed. FINDINGS: There are again seen postsurgical changes of a left total hip replacement. There is no evidence of h ardware failure. The bones are intact. The soft tissues are unremarkable. IMPRESSION: Stable left THR.
== END 2019-03-06 08:46 ==
PROVIDERS: PCP Emergency Medicine; Visit Provider Physician Assistant
DX: Z96.642 Presence of left artificial hip joint (principal); Z47.1 Aftercare following joint replacement surgery
CPT/HCPCS: 73502

== ENCOUNTER 2019-05-02 11:00 | Emergency (ER) | payer MEDICAID, SELFPAY ==
[2019-05-02 11:05] VITALS: BP 110/78; PULSE 58; RESP 18; TEMP 36.6; O2SAT 99
--- NOTE | 2019-05-02 11:17 | W.ED.GENAD ---
Discharge Plan Disposition Patient Disposition: HOME Condition: Stable Discharge Details Chief Complaint: DentalOral Clinical Impression: Pain, dental Primary Care Provider: Virgilio Matthews ED Provider: Melony Ganoa Home Meds and New Rx's Prescriptions: New penicillin V potassium 500 mg tablet 500 mg PO QID 7 Days Qty: 28 RF: 0 Continued rosuvastatin [Crestor] 10 mg tablet 10 mg PO DAILY Qty: 90 RF: 3 oxycodone 5 mg tablet 5 mg PO Q4H MDD 30mg PRN (Reason: pain) Qty: 10 RF: 0 acetaminophen 500 mg tablet 1,000 mg PO Q8H PRN PRN (Reason: pain) Qty: 90 RF: 0 ibuprofen 600 mg tablet 600 mg PO Q6H PRN (Reason: pain) Qty: 90 RF: 0 aspirin [Aspir-81] 81 mg tablet,delayed release (DR/EC) 81 mg PO BID Qty: 60 RF: 0 pantoprazole 40 mg tablet,delayed release (DR/EC) 40 mg PO DAILY Qty: 30 RF: 0 Discharge Instructions Instructions: Toothache (ED) Additional Instructions: Continue to alternate Tylenol and Motrin as needed and directed for pain. Take the antibiotics until finished. Follow-up with your dentist on Sunday. Return to the emergency department if you develop any worsening or new concerning symptoms such as fever, worsening pain, redness, swelling, difficulty swallowing or breathing. Discharge Data Discharge Date/Time-TO BE ENTERED AT DEPARTURE: 05/02/19 11:41 Discharge Physician: Melony Gaona Medical Decision Making 54-year-old male presents with left lower dental pain at the site of a former root canal since yesterday. He denies any new injury, fracture, fever, difficulty swallowing. He has taken Tylenol and Motrin for pain. Tenderness to palpation of tooth on lower left side. There is no abscess noted. There is no obvious edema or erythema. Patient states he called [employer] [employer] and was advised to come to the ER for further evaluation due to his history of left hip replacement [address] on penicillin. Patient states he has a follow-up with dentist on Sunday. Usual and customary return precautions given prior to discharge. HPI General Mode of arrival: ambulatory. Date/Time Provider Initiated Documentation: 05/02/19 11:14. Limitations to Documentation: no limitations. Information obtained by: patient. History of Present Illness 54 year old M presents to the emergency department with the chief complaint of L lower dental pain , Quality is described as aching and sharp, Patient started experiencing this day(s) (1) and it has been constant. Medication improves symptom(s), No exacerbating factors reported . Patient notes no other symptoms.. Related Data Home Medications Medication Instructions Recorded Confirmed rosuvastatin 10 mg tablet 10 mg PO DAILY #90 tab 11/26/18 03/06/19 acetaminophen 500 mg tablet 1,000 mg PO Q8H PRN PRN #90 tab 02/10/19 05/02/19 aspirin 81 mg tablet,delayed 81 mg PO BID #60 tab 02/10/19 03/06/19 release ibuprofen 600 mg tablet 600 mg PO Q6H PRN #90 tab 02/10/19 05/02/19 oxycodone 5 mg tablet 5 mg PO Q4H PRN #10 tab MDD 30mg 02/10/19 03/06/19 pantoprazole 40 mg tablet,delayed 40 mg PO DAILY #30 tab 02/10/19 03/06/19 release penicillin V potassium 500 mg PO QID 7 Days #28 tab 05/02/19 Previous Rx's Medication Instructions Recorded rosuvastatin 10 mg tablet 10 mg PO DAILY #90 tab 11/26/18 acetaminophen 500 mg tablet 1,000 mg PO Q8H PRN PRN #90 tab 02/10/19 aspirin 81 mg tablet,delayed 81 mg PO BID #60 tab 02/10/19 release ibuprofen 600 mg tablet 600 mg PO Q6H PRN #90 tab 02/10/19 oxycodone 5 mg tablet 5 mg PO Q4H PRN #10 tab MDD 30mg 02/10/19 pantoprazole 40 mg tablet,delayed 40 mg PO DAILY #30 tab 02/10/19 release penicillin V potassium 500 mg PO QID 7 Days #28 tab 05/02/19 Allergies Allergy/AdvReac Type Severity Reaction Status Date / Time atorvastatin AdvReac Mild Unverified 05/02/19 11:09 General Stated Complaint: DentalOral ALEC: 4 Review of Systems All systems reviewed & are unremarkable except as noted in HPI and below PFSH Medical History Alopecia (Chronic) Cardiomyopathy (Chronic) 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) Surgical History (Updated 05/02/19 @ 14:11 by Melony Gaona DO) History of left hip replacement (Acute) Status post arthroscopy of right knee (Acute) Family History Father Myocardial infarction Social History Smoking/Tobacco Use Status: Former Tobacco Use Quit Date: 09/14/00 Pack-years: 10 Alcohol Intake: current Alcohol Intake frequency: a few times a month Alcohol type: beer Drug use: Never Substance use type: does not use Current gender identity: male Do you feel safe in your relationship?: Yes Exam Const General: cooperative, healthy appearing and no acute distress HENMT Head: normal to inspection Ears: hearing grossly normal bilaterally, external ears normal and TM's normal bilaterally General nose exam: external nose normal Face and sinus: normal facial exam Mouth: oral mucosae normal Teeth image: 1. Left lower dental pain. Teeth missing, unsure of specific number but may be between 19 and 21. The tooth of concern had for root canal, cap in place. No obvious fractures noted. There is tenderness to palpation of the tooth. There is no surrounding edema, erythema, ecchymosis, fluctuance or induration. Throat: posterior oropharynx normal Eyes General: appearance normal, both eyes and all related structures Neck Neck: normal visual inspection, no lymphadenopathy, no meningeal signs, trachea midline, supple, no anterior neck swelling and No submandibular swelling Resp Effort & Inspection: normal respiratory effort and able to speak in complete sentences Cardio Rate: regular rate Skin General skin exam: no rashes or lesions noted Neuro General: alert, awake and oriented x3 Motor: muscle tone normal throughout Extrem General: normal to inspection and full ROM Psych Appearance: grossly normal Affect: normal affect Course Vital Signs Vital signs: Vital Signs Temperature 97.9 F 05/02/19 11:05 Pulse 58 L 05/02/19 11:05 Respiratory Rate 18 05/02/19 11:05 Blood Pressure 110/78 05/02/19 11:05 Pulse Oximetry 99 05/02/19 11:05 Temperature 97.9 F 05/02/19 11:05 Temperature Source Skin 05/02/19 11:05 Pulse 58 L 05/02/19 11:05 Respiratory Rate 18 05/02/19 11:05 Respiratory Effort Non-Labored 05/02/19 11:08 Blood Pressure 110/78 05/02/19 11:05 Blood Pressure Position Sitting 05/02/19 11:05 Pulse Oximetry 99 05/02/19 11:05 Oxygen Delivery Method Room Air 05/02/19 11:05 Oxygen Flow Rate 0 05/02/19 11:05 Pain Level 5 05/02/19 11:05
== END 2019-05-02 11:41 | disposition home or self-care (01) ==
LOC: ER 11:34
PROVIDERS: Emergency Provider Physician Assistant; PCP Emergency Medicine
DX: R22.0 Localized swelling, mass and lump, head (principal); R68.84 Jaw pain; K08.89 Other specified disorders of teeth and supporting structures; Z96.642 Presence of left artificial hip joint
CPT/HCPCS: 99283; 99284

== ENCOUNTER 2020-01-29 02:38 | Outpatient (CLI) | payer MEDICAID, SELFPAY ==
[2020-01-29 16:17] LABS: Abs Immature Grans 0.01 10^3/uL (0.0-0.06); Absolute Basophil Count 0.04 10^3/uL (0.0-0.2); Absolute Eosinophil Count 0.05 10^3/uL (0.0-0.7); Absolute Lymphocyte Count 1.61 10^3/uL (1.2-3.4); Absolute Monocyte Count 0.29 10^3/uL (0.1-0.8); Absolute Neutrophil Count 4.07 10^3/uL (1.2-6.7); Basophils % 0.7; Eosinophils % 0.8; HCT 42.9 % (40.0-50.0); HGB 14.5 g/dL (13.5-17.5); Immature Grans % 0.2; Lymphocytes % 26.5; MCH 29.1 pg (27.0-33.0); MCHC 33.8 % (32.0-36.0); MCV 86.1 fL (80-95); MPV 11.5 fL (8.0-11.0); Monocytes % 4.8; Nucleated RBC 0 %; Platelet Count 215 10^3/uL (130-400); RBC 4.98 10^6/uL (4.36-5.78); RDW 12.4 % (11.8-14.1); WBC 6.07 10^3/uL (4.4-10.8)
[2020-01-29 17:15] LABS: ALT 33 U/L (16-63); AST 23 U/L (15-37); Albumin 4.1 g/dL (3.4-5.0); Alkaline Phosphatase 52 U/L (46-116); Anion Gap 12.2 mmol/L (3-11); BUN 22 mg/dL (7-18); Bilirubin, Total 0.6 mg/dL (0.2-1.0); CO2 25.8 mmol/L (21.0-32.0); CREATININE 1.26 mg/dL (0.70-1.30); Chloride 103 mmol/L (98-107); Estimated GFR 59.87 (mL/min/1.73m2); Glucose 126 mg/dL (74-106); Potassium 4.4 mmol/L (3.5-5.1); Sodium 141 mmol/L (136-145); Total Protein 6.7 g/dL (6.4-8.2); Triglyceride 263 mg/dL (<150)
[2020-02-02 14:16] LABS: TB Interpretation Negative (Negative); TB2 Ag minus Nil 0.04 IU/mL
== END 2020-01-29 02:58 ==
PROVIDERS: PCP Emergency Medicine; Visit Provider Dermatology
DX: Z79.899 Other long term (current) drug therapy (principal)
CPT/HCPCS: 36415; 80053; 84478; 85025; 86480

== ENCOUNTER 2020-02-05 10:19 | Outpatient (CLI) | payer MEDICAID, SELFPAY ==
--- NOTE | 2020-02-05 08:45 | DI.RAD_ITS ---
EXAM: XR FOOT RT COMPLETE CLINICAL HISTORY: rt foot pain. TECHNIQUE: 2D digital imaging was performed. COMPARISON: No exams were available for comparison FINDINGS: BONES: No acute fracture is present. No bony destructive lesion is seen. There is a small plantar ca lcaneal spur. JOINTS: No dislocation present. There are no significant degenerative changes. SOFT TISSUE: Normal. IMPRESSION: Small heel spur. DATA REPOSITORY: RADIATION DOSE DELIVERED:
== END 2020-02-05 10:39 ==
PROVIDERS: PCP Emergency Medicine; Referring Provider Emergency Medicine; Visit Provider Physician Assistant Surgical
DX: M77.31 Calcaneal spur, right foot (principal)
CPT/HCPCS: 73630

== ENCOUNTER 2021-05-19 02:04 | Outpatient (CLI) | payer MEDICAID, SELFPAY ==
--- NOTE | 2021-05-19 06:48 | DI.US_ITS ---
Exam(s) US HERNIA EXAM: US HERNIA CLINICAL HISTORY: intermittent LLQ pain, ? hernia, R10.32 TECHNIQUE: Ultrasound performed using standard protocol. COMPARISON: US Cardiac from 06/21/2018 FINDINGS: Soft tissue ultrasound was performed in the left inguinal region. No mass or hernia identified. If there is a high clinical suspicion of hernia additional evaluation with CT may be considered. IMPRESSION: DATA REPOSITORY:
== END 2021-05-19 02:24 ==
PROVIDERS: PCP Nurse Practitioner Family; Visit Provider Surgery
DX: R10.32 Left lower quadrant pain (principal)
CPT/HCPCS: 76857

== ENCOUNTER 2023-12-11 19:11 | Outpatient (REF) | payer MEDICAID, SELFPAY ==
[2023-12-11 12:21] LABS: Hemoglobin A1C 5.6 % (<5.7)
[2023-12-11 12:27] LABS: Calculated LDL 236 mg/dL (<100); Cholesterol 324 mg/dL (<200); HDL Cholesterol 57 mg/dL (40-60); Triglyceride 158 mg/dL (<150)
[2023-12-11 19:27] LABS: PSA, Screening 3.5 ng/mL (<=3.5)
== END 2023-12-11 19:12 | disposition home or self-care (01) ==
LOC: LBN 19:11
PROVIDERS: PCP Nurse Practitioner Family; Visit Provider Nurse Practitioner Family
DX: Z13.220 Encounter for screening for lipoid disorders (principal); Z12.5 Encounter for screening for malignant neoplasm of prostate; Z13.1 Encounter for screening for diabetes mellitus
CPT/HCPCS: 80061; 84153; 83036

== ENCOUNTER 2024-01-28 02:04 | Outpatient (CLI) | payer MEDICAID, SELFPAY ==
[2024-01-28] MEDS: Barium Sulfate 2% W/V-Creamy Vanilla Smoothie 450 ML BTL PO (12:16)
[2024-01-28] MEDS: Barium Sulfate 2% W/V-Berry Smoothie 450 ML BTL PO (12:17)
[2024-01-28] MEDS: Normal Saline - Diluent 50 ML VIAL IJ (14:13)
[2024-01-28] MEDS: Omnipaque 350 MG/ML 100 ML BTL 85 ML IJ (14:15)
--- NOTE | 2024-01-28 14:27 | DI.CT_ITS ---
Exam(s) CT ABDOMEN PELVIS W EXAM: CT ABDOMEN PELVIS W CLINICAL HISTORY: MASS LT LOWER QUAD ABDOMEN, R19.04, TENDERNESS. TECHNIQUE: Imaging Protocol: Axial computed tomography images with coronal and sagittal reformatted images were created and reviewed CONTRAST MATERIAL: Intravenous: Omnipaque-350 85cc Oral: Yes. Oral contrast was administered for bowel opacification. COMPARISON: No exams were available for comparison FINDINGS: VISUALIZED LUNG BASES: No nodules nor pleural effusions evident. ABDOMEN: There is no ascites. LIVER: There are no focal hepatic lesions evident. No dilated intrahepatic ducts. GALLBLADDER/BILIARY: No obvious gallbladder pathology. CBD is not dilated. PANCREAS: No evidence of pancreatic mass nor dilatation of the pancreatic duct. SPLEEN: Spleen size is upper normal (12.8 cm). There are no splenic lesions. Splenic and portal vei ns are patent. ADRENALS: Unremarkable. KIDNEYS: There is a benign cortical cyst in the anterior right kidney measuring 1.2 cm. Does not requ breann further workup. No other focal renal findings. No calculi. No hydronephrosis. No solid renal m asses. Ureters are not dilated. Urinary bladder is somewhat obscured by beam hardening artifact from left hip prosthesis but there are no obvious abnormalities in the bladder lumen. ABDOMINAL AORTA: Abdominal aorta is not enlarged. LYMPH NODES:There is no retroperitoneal nor paraaortic adenopathy. ABDOMINAL WALL: No evidence of significant anterior abdominal wall nor inguinal hernia. GI: There is no evidence of bowel obstruction, free air, nor abscess. PELVIS: GI: No evidence of appendicitis.No evidence of significant sigmoid diverticular disease.There is a mo derate amount of fecal material throughout the colon. No gross distention of the colon nor colitis p attern LYMPH NODES: There is no intrapelvic nor inguinal adenopathy. REPRODUCTIVE: Normal prostate size. URINARY BLADDER: Not distended. Somewhat obscured by beam hardening artifact from left hip prosthesi s but no obvious abnormalities. OSSEOUS: Chronic degenerative disc disease advanced disc space narrowing L4-5. Also mild anterolisth esis L4 upon L5 related to facet arthropathy. Also moderate disc space narrowing at L1-2 level. Lef t hip prosthesis IMPRESSION: 1. No evidence of significant mass in left lower quadrant. No significant sigmoid diverticular disea se. No evidence of inguinal hernia. No abnormal mesenteric masses. 2. Moderate-increased amount of fecal material noted throughout the colon. No evidence of obstructio n nor significant diverticular disease nor evidence of colitis pattern. Appendix is not seen and may be surgically absent. 3. No evidence of small bowel obstruction, free air, nor abscess. 4. Spleen size is upper normal RADIATION DOSE DELIVERED: 392.01mGy.cm Total DLP DATA REPOSITORY: All CT scans at this facility are submitted to the National Radiology Data Registry (NRDR) Dose Index Registry (DIR) with the [employer] (ACR). RADIATION OPTIMIZATION: All CT scans at this facility use at least one of these dose optimization te chniques: automated exposure control; mA and/or kV adjustment per patient size (includes targeted exa ms where dose is matched to clinical indication); or iterative reconstruction.
== END 2024-01-28 02:24 ==
LOC: DI 02:04
PROVIDERS: PCP Nurse Practitioner Family; Visit Provider Nurse Practitioner Family
DX: R19.04 Left lower quadrant abdominal swelling, mass and lump (principal)
CPT/HCPCS: 74177; J3490

== ENCOUNTER 2024-02-20 09:42 | Day surgery (SDC) | payer MEDICAID, SELFPAY ==
--- NOTE | 2024-02-19 18:57 | W.PM.DSUDISC ---
Date of service: 02/20/24 Discharge Plan Disposition Patient Disposition: Home Condition: Good Discharge Details Reason For Visit: screening colonoscopy Attending Provider: Eugenio Littlejohn Primary Care Provider: Hesham Coronel Home Meds and New Rx's Prescriptions: Continued triamcinolone acetonide 0.05 % ointment 1 applic topical BID Qty: 430 4RF lisinopril 10 mg tablet 10 mg PO DAILY Qty: 90 3RF rosuvastatin 10 mg tablet 10 mg PO DAILY Qty: 90 3RF Discharge Instructions Additional Instructions: 1. If tolerated, consume a soft, low fiber diet for 1-2 days. 2[address] Do not drive, drink alcohol, operate machinery, make critical decisions, or do activities that require coordination or balance for 24 hours. 3. Because air was put into your colon during the procedure, expelling air from your rectum (passing gas or farting) is normal. 4. You may not have a bowel movement for 1-3 days because of the colonoscopy prep. This is normal. 5. Go directly to the emergency room if you notice any of the following: Develop chills (warm to touch), or if you have a thermometer and your temperature is above 101 Difficulty breathing or difficultly swallowing Persistent vomiting Severe abdominal pain, other than gas cramps Severe chest pain Black, tarry stools Any bleeding ? exceeding one tablespoon 6. Call your physician if the site where your intravenous was started becomes red, swollen, painful, and warm to touch. 7. Your physician has reviewed your pre-procedure medications. Please continue to take those medications as previously ordered. You will be given specific information/education regarding any changes to your medications before leaving. Activity:: Activity as Tolerated Diet:: As Tolerated DS: Diagnosis Discharge Diagnosis (1) Encounter for screening colonoscopy: Status: Acute
--- NOTE | 2024-02-19 18:58 | W.COLOREPORT ---
Date of service: 02/20/24 Colonoscopy Report Date of procedure: 02/20/24 Pre-op diagnosis general: screening colonoscopy Procedure: colonoscopy Surgeon: Eugenio Littlejohn Anesthesia Type: General:No Airway Complications: None Disposition: same day Indications: Jay is a 58 year old man who needs a screening colonoscopy Prep: Miralax/Dulcolax
[2024-02-20 10:12] VITALS: BP 138/98; PULSE 58; RESP 16; TEMP 36.4; O2SAT 99
[2024-02-20] MEDS: Normal Saline Flush 10 ML SYR IV (10:22)
--- NOTE | 2024-02-20 10:31 | W.ANESPRE ---
General Info Date of Service Date Performed: 02/20/24 Height: 6 ft Weight: 87.9 kg Body Mass Index (BMI): 26.2 Surgical Procedure: Operation Date: 02/20/24 11:05 Proposed Procedure Side Surgeon p Colonoscopy Eugenio Littlejohn MD Actual Procedure Side Surgeon p Colonoscopy Not Applicable Eugenio Littlejohn MD Pre-Op Diagnosis Post-Op Diagnosis screening colonoscopy Meds Allergies and Home Medications Allergies Allergy/AdvReac Type Severity Reaction Status Date / Time atorvastatin AdvReac Mild muscle Verified 02/20/24 10:12 soreness Home Medication ?Medication ?Instructions ?Recorded triamcinolone acetonide 0.05 % 1 applic topical BID #430 grams 11/01/23 topical ointment lisinopril 10 mg tablet 10 mg PO DAILY #90 tabs 01/23/24 rosuvastatin 10 mg tablet 10 mg PO DAILY #90 tabs 01/23/24 Current Visit Medications: Current Medications Generic Name Dose Route Start Last Admin Trade Name Freq PRN Reason Stop Dose Admin Ringer's Solution 500 mls @ 80 mls/hr 02/20/24 06:00 IV 02/20/24 23:59 INFUSION MANOLO IV Miscellaneous Supplies 1 each 02/20/24 06:00 Iv Access IV 02/20/24 23:59 DIRECTED MANOLO Ondansetron HCl 4 mg 02/19/24 19:00 Ondansetron 4 Mg/2 Ml Vial IVP 03/20/24 18:59 Q4H PRN PRN Nausea / Vomiting Sodium Chloride 0 ml 02/20/24 06:00 02/20/24 10:22 Normal Saline Flush 10 Ml Syr IV 02/20/24 23:59 10 ml PRN PRN Administration Sodium Chloride 0 ml 02/20/24 06:00 Normal Saline 10 Ml Vial IJ 02/20/24 23:59 DIRECTED PRN Sterile Water 0 ml 02/20/24 06:00 Water,Injection,Sterile 10 Ml Vial IJ 02/20/24 23:59 DIRECTED PRN PFSH Active Problems Active Problems: Problem Status Onset Code Encounter for screening colonoscopy Acute Z12.11 Hyperlipidemia Acute E78.5 Essential hypertension Acute I10 Psoriasis Chronic L40.9 Left lower quadrant abdominal pain Acute R10.32 Diarrhea Acute R19.7 Family history of early CAD Acute Z82.49 Medical History Medical History Plantar fascia syndrome Degenerative joint disease of left hip Cardiomyopathy Per pt.states this was stress related and is fine now Alopecia Combined hyperlipidemia father 66 [place] Surgical History Surgical History History of left hip replacement Status post arthroscopy of right knee Tobacco Smoking/Tobacco Use Status: Former Tobacco Use Alcohol Alcohol Intake: current Alcohol intake frequency: a few times a month Alcohol type: beer Substance Use Substance use: Never Substance use type: does not use Vital Signs and Lab Results Vital Signs Most Recent Vital Signs in EMR: Most Recent Vital Signs Temp Pulse Resp BP Pulse Ox 36.4 C L 58 L 16 138/98 H 99 02/20/24 10:12 02/20/24 10:12 02/20/24 10:12 02/20/24 10:12 02/20/24 10:12 Lab Results Blood Type / Crossmatch: No Data to Display Complete Blood Count: No Data to Display Complete Metabolic Panel: No Data to Display Liver Function Panel: No Data to Display Coagulation Panel: No Data to Display Cardiac Panel: No Data to Display Arterial Blood Gas: No Data to Display Venous Blood Gas: No Data to Display Pancreas Panel: No Data to Display Thyroid Panel: No Data to Display Infectious Disease: No Data to Display Blood Cultures: No Data to Display Toxicology Panel: No Data to Display Imaging and Studies Imaging and Studies Study information below may be from another EMR and interpreted by another provider. Please see original notes in EMR for more complete details. Stress Test Summary: 06/12/18: Myocardial perfusion: Imaging information: gated. Left ventricular size is normal. No myocardial perfusion defects noted. Ventricular Function (Wall Motion): The calculated left ventricular ejection fraction after stress: 42%. LV global systolic function is mild to moderately reduced. Diffuse left ventricular regional motion abnormalities. Echocardiogram Summary: 06/21/18: *STUDY CONCLUSIONS* Summary: 1. Left ventricle: The cavity size was normal. Wall thickness was normal. Systolic function was at the lower limits of normal. The estimated ejection fraction was 50-55%. Wall motion was normal; there were no regional wall motion abnormalities. 2. Right ventricle: The cavity size was normal. Systolic function was normal. 3. Aortic valve: There was trivial regurgitation. 4. Mitral valve: Mildly calcified annulus. Mildly thickened leaflets. There was mild regurgitation. 5. Pulmonary arteries: Pulmonary systolic pressure was within the normal range, in the range of 25mm Hg to 30mm Hg. 6. Inferior vena cava: The vessel was patent and normal in size. The respirophasic diameter changes were in the normal range (greater than or equal to 50%), consistent with normal central venous pressure. Anesthesia Assessment and Plan Anesthesia History Personal History: No History of Anesthesia Complications Family History: No Family History of Anesthesia Complications Exercise Tolerance Exercise Tolerance: Metabolic Equivalents>4 Pertinent Negatives Pertinent Negatives: No Symptoms of GERD, No Major Cardiovascular Symptoms or Complaints and No Major Pulmonary Symptoms or Complaints Cardiac & Pulmonary Exam Cardiac Exam: Normal S1/S2 Heart Sounds Pulmonary Exam: Clear Bilateral Breath Sounds Implantable Cardiac Device Does patient have a Pacemaker or an ICD?: No Airway Exam Known Difficult Airway: No Mallampati Class: 1 Mouth Opening: Normal (> 3cm) Thyromental Distance: Greater than 3 cm Neck Range of Motion: Full ROM Neck Circumference: Normal Teeth Condition: Normal Dentition ASA Classification ASA Score: ASA 2 Emergency Case?: No NPO Status NPO Status: NPO Clears >2 hours, Solids >8 hours Anesthesia Plan Resuscitation Status: Full Code Anesthesia Technique: General Anesthesia Airway Planned: Natural Airway Monitors Used: Standard Monitors
[2024-02-20 10:35] VITALS: BMI 26.2
[2024-02-20] MEDS: Lactated Ringers 500 ML IV (11:05)
[2024-02-20] MEDS: ACETAMINOPHEN 1,000 MG/100 ML BAG 400 MG IVPB (11:16)
--- NOTE | 2024-02-20 11:40 | NUR.NOTE ---
Patient left at 1136 before having his procedure done, he was educated on IV Tylenol that was given and to watch for infection at his IV site. Nursing Note:
== END 2024-02-20 09:43 | disposition home or self-care (01) ==
LOC: SUR 09:45
PROVIDERS: PCP Nurse Practitioner Family; Visit Provider Surgery
DX: Z53.20 Procedure and treatment not carried out because of patient's decision for unspecified reasons (principal)
CPT/HCPCS: J0131; J2004

== ENCOUNTER 2024-05-09 12:55 | Outpatient (REF) | payer MEDICAID, SELFPAY ==
[2024-05-09 16:40] LABS: C-Reactive Protein < 0.50 mg/dL (<or=0.5)
[2024-05-12 09:21] LABS: Cyclic Citrullinated Peptide <2.5 U/mL (<5.0)
[2024-05-12 11:04] LABS: Lyme Ab w Rflx to Lyme Confirm Negative (Negative)
[2024-05-12 11:42] LABS: ANA Interpretation Negative (Negative)
[2024-05-12 21:12] LABS: Anaplasma phagocytophilum Negative (Negative); B. miyamotoi PCR Negative (Negative); Babesia divergens/MO-1 Negative (Negative); Babesia duncani Negative (Negative); Babesia microti Negative (Negative); Ehrlichia chaffeensis Negative (Negative); Ehrlichia ewingii/canis Negative (Negative); Ehrlichia muris eauclairensis Negative (Negative)
== END 2024-05-09 12:56 | disposition home or self-care (01) ==
LOC: LBN 12:55
PROVIDERS: PCP Nurse Practitioner Family; Visit Provider Nurse Practitioner Family
DX: L40.9 Psoriasis, unspecified (principal); M35.3 Polymyalgia rheumatica; N52.9 Male erectile dysfunction, unspecified
CPT/HCPCS: 84402; 84403; 86200; 87798; 86038; 86140; 86618

== ENCOUNTER 2024-11-03 20:39 | Outpatient (REF) | payer MEDICAID, SELFPAY ==
--- NOTE | 2024-11-03 16:01 | SKI_PTH ---
PATIENT: Cj Wiseman LOC: [facility] U#:[id number] AGE/SX: 59/M ROOM: RE11/03/[address]: Hesham Coronel NP : [id number] BED: DIS: 11/03/2024 SPEC #: [id number] RECD: 11/04/24 12:49 STATUS: ALEX RESilvia #: [id number] DRE: 11/03/24 16:[address]: Hesham Coronel DEPT: Surgical Specimen RECD BY: Verito Nichols Tissues: 1 - SKIN BIOPSY(SHAVE/PUNCH) Procedures: SKIN LEVEL 4 SPECIAL STAIN 1 Comments: [id number]
== END 2024-11-03 20:40 | disposition home or self-care (01) ==
LOC: LBN 20:39
PROVIDERS: PCP Nurse Practitioner Family; Visit Provider Nurse Practitioner Family
DX: L40.4 Guttate psoriasis (principal)
CPT/HCPCS: 88305; 88312

== ENCOUNTER 2025-01-28 18:28 | Outpatient (CLI) | payer MEDICAID, SELFPAY ==
--- NOTE | 2025-01-28 18:15 | RT.EKG_ITS ---
APPROVED REPORT Exam: Resting ECG Reason for Exam: chest discomfort Patient Location: O HR:62 bpm ECG Measurements Heart Rate 62 AXIS IA 161 P 62 QRSd 107 QRS -3 QT 421 T 59 QTc 428 Conclusion Sinus rhythm...normal P axis, V-rate 50- 99 Probable left atrial enlargement...P >50mS, <-0.10mV V1 Otherwise normal ECG
== END 2025-01-28 18:29 | disposition home or self-care (01) ==
LOC: DI.CM 18:29
PROVIDERS: PCP Nurse Practitioner Family; Visit Provider Nurse Practitioner Family
DX: R07.89 Other chest pain (principal); R00.1 Bradycardia, unspecified
CPT/HCPCS: 93010

== ENCOUNTER 2025-01-28 19:19 | Emergency (ER) | payer MEDICAID, SELFPAY ==
[2025-01-28] VITALS (28 sets, daily range): BP systolic 146–187; BP diastolic 93–113; PULSE 51–64; RESP 8–22; TEMP 36.4–36.6; O2SAT 94–98
--- NOTE | 2025-01-28 19:15 | RT.EKG_ITS ---
APPROVED REPORT Exam: Resting ECG Reason for Exam: chest pain Patient Location: E HR:58 bpm ECG Measurements Heart Rate 58 AXIS MD 173 P 55 QRSd 107 QRS -31 QT 430 T [id number] QTc 422 Conclusion Sinus bradycardia...rate< 60 Left axis deviation...QRS axis (-30,-90)
--- NOTE | 2025-01-28 19:42 | W.ED.GENAD ---
Discharge Plan Disposition Patient Disposition: Home Condition: Stable Discharge Details Clinical Impression: Chest pain Primary Care Provider: Hesham Coronel ED Provider: Earnest Krishna [place] Meds and New Rx's Prescriptions: Continued rosuvastatin 10 mg tablet 10 mg PO DAILY Qty: 90 3RF methocarbamol 750 mg tablet 750 mg PO TID Qty: 90 0RF No Action sildenafil 100 mg tablet 100 mg PO DAILY PRN (Reason: sexual activity) Qty: 90 3RF Rx Instructions: administer 30 minutes to 4 hours before activity Discharge Instructions Additional Instructions: Your blood work and CAT scan on my read do not show any concerning findings at this time. I would recommend following up with your primary care provider and discuss having an outpatient stress test. If you feel more ill or have severe worsening chest pain, nausea vomiting or become sweaty with the chest pain return to the emergency department for reevaluation. HPI General Mode of arrival: ambulatory. Date/Time Provider Initiated Documentation: 01/28/25 19:23. Limitations to Documentation: no limitations. Information obtained by: patient. History of Present Illness 59 year old M presents to the emergency department with the chief complaint of chest pain, described as moderate, Quality is described as other (tightness), and is localized to the chest. Patient started experiencing this day(s) (2) and it has been now resolved. No relieving factors improve symptom(s), No exacerbating factors reported . Patient notes shortness of breath; denies fever/chills. Patient did receive the following treatments prior to arrival, none Related Data Home Medications ?Medication ?Instructions ?Recorded ?Confirmed sildenafil 100 mg tablet 100 mg PO DAILY PRN sexual 06/30/24 01/28/25 activity #90 tabs rosuvastatin 10 mg tablet 10 mg PO DAILY #90 tabs 11/03/24 01/28/25 methocarbamol 750 mg tablet 750 mg PO TID #90 tabs 12/10/24 01/28/25 Previous Rx's ?Medication ?Instructions ?Recorded sildenafil 100 mg tablet 100 mg PO DAILY PRN sexual 06/30/24 activity #90 tabs rosuvastatin 10 mg tablet 10 mg PO DAILY #90 tabs 11/03/24 methocarbamol 750 mg tablet 750 mg PO TID #90 tabs 12/10/24 Allergies Allergy/AdvReac Type Severity Reaction Status Date / Time atorvastatin AdvReac Mild muscle Verified 01/28/25 18:48 soreness General Stated Complaint: Chest Pain ALEC: 3 Review of Systems All systems reviewed & are unremarkable except as noted in HPI and below Constitutional Constitutional: Denies chills, Denies fever(s) and Denies weakness Cardiovascular Cardiovascular: Reports chest pain and Reports dyspnea Respiratory Respiratory: Denies cough and Reports dyspnea Gastrointestinal Gastrointestinal: Denies abdominal pain, Denies nausea and Denies vomiting Neurologic Neurologic: Denies weakness Exam Const General: no acute distress Orientation: alert HENMD Head: normal to inspection Ears: external ears normal General nose exam: external nose normal Mouth: moist mucous membranes Eyes General: appearance normal, both eyes and all related structures Neck Neck: normal visual inspection Resp Effort & Inspection: normal respiratory effort and able to speak in complete sentences Auscultation: clear to auscultation bilaterally Cardio Jugular venous pressure: no JVD Rate: regular rate Skin General skin exam: no rashes or lesions noted Neuro General: patient alert and patient oriented x3 Extrem General: normal to inspection Psych Mental Status: mental status grossly normal Course Vital Signs Vital signs: Vital Signs Temperature 36.6 C 01/28/25 19:24 Pulse 62 01/28/25 19:24 Respiratory Rate 20 01/28/25 19:24 Blood Pressure 187/102 H 01/28/25 19:24 Pulse Oximetry 97 01/28/25 19:24 Temperature 36.6 C 01/28/25 19:24 Pulse 62 01/28/25 19:24 Respiratory Rate 12 01/28/25 19:31 Respiratory Effort Normal 01/28/25 19:31 Respiratory Depth Normal 01/28/25 19:31 Respiratory Pattern Normal 01/28/25 19:31 Blood Pressure 187/102 H 01/28/25 19:24 Blood Pressure Position Sitting 01/28/25 19:24 Pulse Oximetry 97 01/28/25 19:24 Oxygen Delivery Method Room Air 01/28/25 19:24 Oxygen Flow Rate 0 01/28/25 19:24 Medical Decision Making 59-year-old male with a history of hyperlipidemia, hypertension who smoked briefly in his 20s comes in with intermittent chest pain for 2 days. He also notes some shortness of breath. Denies any fevers, chills, diaphoresis, vomiting. He is denying any pain now. He is well-appearing speaking full sentences. He has no JVD, no leg swelling or calf tenderness. Given his complaints we will check a CBC CMP and troponins given he also is having shortness of breath and will check a CTA to evaluate for possible PE. Has no tearing back pain to suggest dissection. Patient's labs including delta troponin unremarkable. CT on my read shows no acute findings. Patient does not want to wait for the official read so I will call him if they see anything of concern. He will follow-up with his PCP and return precautions given. Differential Diagnosis Differential Diagnosis: nstemi, angina, pe Medical Records Medical records reviewed: Yes I reviewed the patient's medical records. Lab Data Lab results reviewed: Yes I reviewed the patient's lab results. ECG Data Attestation: I personally reviewed and interpreted this ECG (s) as follows: Prior ECG tracings: available for review Interpretation: sinus bradycardia, rate of 58 no stemi PFSH All Active Problems (Updated 01/28/25 @ 21:52 by Earnest Krishna MD) Chest pain (Acute) Rheumatoid arthritis (Chronic) Seborrheic keratoses (Acute) Hyperlipidemia (Acute) Essential hypertension (Acute) Psoriasis (Chronic) Family history of early CAD (Acute) Medical History Abnormal skin growth Screening for malignant neoplasm of skin Plantar fascia syndrome Degenerative joint disease of left hip Cardiomyopathy Per pt.states this was stress related and is fine now Alopecia Combined hyperlipidemia father 66 [place] Surgical History History of colonoscopy (~02/2024) History of left hip replacement Status post arthroscopy of right knee Family History Father Myocardial infarction Social History Smoking/Tobacco Use Status: Former Tobacco Use Quit Date: 09/14/00 Pack-years: 10 Tobacco: How many years used: 16 Smoking risk assessment performed?: Yes Alcohol Intake: current Alcohol Intake frequency: a few times a month Alcohol type: beer Drug use: Never Substance use type: does not use Housing: house Current gender identity: male Do you feel safe at home: Yes Do you feel safe in your relationship?: Yes PAWSS Have you Been Recently Intoxicated or Drunk Within the Last 30 days?: No Have you Ever Experienced Previous Episodes of Alcohol Withdrawal?: No Have you ever Experienced Withdrawal Seizures?: No Have you ever Experienced Delirium Tremens(DT)s?: No Have you ever undergone Alcohol Rehabilitation Treatment (i.e, inpt ot outpatient treatment programs)?: No Have you ever Experienced Blackouts?: No Have you ever Combined Alcohol with other Downers within the last 90 days?: No Have you ever Combined Alcohol with any other Substance of Abuse during the last 90 days?: No Positive Blood Alcohol level on Presentation? [PCS.BAL]: No Evidence of Increased Autonomic Activity (i.e. HR>120, tremor, sweating, agitation, nausea)?: No Result: 0
[2025-01-28 19:49] LABS: Abs Immature Grans 0.01 10^3/uL (0.0-0.06); HCT 46.1 % (40.0-50.0); HGB 15.6 g/dL (13.5-17.5); Immature Grans % 0.2 %; MCH 27.9 pg (27.0-33.0); MCHC 33.8 % (32.0-36.0); MCV 83 fL (80-95); MPV 10.7 fL (8.0-11.0); Platelet Count 235 10^3/uL (130-400); RBC 5.59 10^6/uL (4.36-5.78); RDW 12.4 % (11.8-14.1); RDW-SD 37.6 fL; WBC 4.54 10^3/uL (4.4-10.8)
[2025-01-28 20:07] LABS: ALT 26 U/L (16-63); AST 17 U/L (15-37); Albumin 4.0 g/dL (3.4-5.0); Alkaline Phosphatase 65 U/L (46-116); Anion Gap 7.0 mmol/L (3-11); BUN 19 mg/dL (7-18); Bilirubin, Total 0.6 mg/dL (0.2-1.0); CO2 32.0 mmol/L (21.0-32.0); Calcium 9.0 mg/dL (8.5-10.1); Chloride 100 mmol/L (98-107); Estimated GFR 70.10 (mL/min/1.73m2); Glucose 98 mg/dL (74-106); Lipase 26 U/L (<78); Magnesium 2.3 mg/dL (1.8-2.4); Potassium 3.9 mmol/L (3.5-5.1); Sodium 139 mmol/L (136-145); Total Protein 7.4 g/dL (6.4-8.2); Troponin I 5 ng/L (<or=76)
[2025-01-28] MEDS: Normal Saline - Diluent 50 ML VIAL IJ (20:50)
[2025-01-28] MEDS: Normal Saline Flush 10 ML SYR IVP (20:52)
[2025-01-28] MEDS: Omnipaque 350 MG/ML 100 ML BTL IJ (20:52)
--- NOTE | 2025-01-28 20:58 | DI.CT_ITS ---
Exam(s) CT CHEST PE CTA EXAM: CT CHEST PE CTA CLINICAL HISTORY: chest pain, dyspnea. TECHNIQUE: Imaging Protocol: Axial CT angiography was performed with multi- slice acquisition and multi-planar reconstructions as well as axial, coronal and sagittal MIP reconstructions. Computer aided detection (CAD) was utilized. CONTRAST MATERIAL: Intravenous: Omnipaque 350 Contrast volume:80 mL COMPARISON: No exams were available for comparison FINDINGS: Pulmonary Arteries: No evidence of filling defect to suggest pulmonary emboli. Mediastinum and Patricia: No dominant adenopathy or fluid collection. Pulmonary parenchyma: No consolidation or dominant measurable mass. Pleura: No effusion or pneumothorax. Heart: The heart is not dilated. Mild coronary artery calcifications are seen. Aorta: Thoracic aorta non-dilated. No dissection. Upper abdomen: No acute findings. Bones: Unremarkable for age. Tubes, Catheters, and Lines: None Soft tissues: Unremarkable. IMPRESSION: No evidence of pulmonary embolism or other acute abnormality. The preliminary [facility] report was reviewed. RADIATION DOSE DELIVERED: 232.28mGy.cm Total DLP DATA REPOSITORY: All CT scans at this facility are submitted to the National Radiology Data Registry (NRDR) Dose Index Registry (DIR) with the [employer] (ACR). RADIATION OPTIMIZATION: All CT scans at this facility use at least one of these dose optimization techniques: automated exposure control; mA and/or kV adjustment per patient size (includes targeted exams where dose is matched to clinical indication); or iterative reconstruction.
[2025-01-28 21:14] LABS: Troponin I 6 ng/L (<or=76)
--- NOTE | 2025-01-28 22:07 | DI.[facility]_ITS ---
PROCEDURE INFORMATION: Exam: CTA Chest With Contrast Exam date and time: 01/28/2025 20:47 Age: 59 years old Clinical indication: Chest pressure; Chest pain, dyspnea TECHNIQUE: Imaging protocol: Computed tomographic angiography of the chest with contrast. Exam focused on the arteries. 3D rendering (Not supervised by radiologist): MIP and/or 3D reconstructed images were created by the technologist. Radiation optimization: All CT scans at this facility use at least one of these dose optimization techniques: automated exposure control; mA and/or kV adjustment per patient size (includes targeted exams where dose is matched to clinical indication); or iterative reconstruction. Contrast material: [id number]; Contrast volume: 80 ml; Contrast route: INTRAVENOUS (IV); COMPARISON: CT ABDOMEN PELVIS W 01/28/2024 14:16 FINDINGS: Pulmonary arteries: No pulmonary emboli. Aorta: No aortic aneurysm. No aortic dissection. Lungs: Scattered microatelectasis. No airspace consolidation. Pleural spaces: No pneumothorax. No pleural effusion. Heart: No cardiomegaly. No pericardial effusion. Lymph nodes: No enlarged lymph nodes. Bones/joints: No acute fracture. Soft tissues: No suspicious lesions. IMPRESSION: No pulmonary emboli are seen. Dictated and Authenticated by: Argenis Wu MD. Orderin Tomi Tinoco MD
== END 2025-01-28 22:06 | disposition home or self-care (01) ==
PROVIDERS: Emergency Provider Emergency Medicine; PCP Nurse Practitioner Family
DX: R07.9 Chest pain, unspecified (principal); R06.02 Shortness of breath
CPT/HCPCS: 99284 ×2; 36415; 71275; 80053; 83690; 93005; 83735; 84484; 85025; 93010; J3490

== ENCOUNTER 2025-03-10 08:17 | Day surgery (SDC) | payer MEDICAID, SELFPAY ==
--- NOTE | 2025-03-09 15:05 | W.PM.DSUDISC ---
Date of service: 03/10/25 Discharge Plan Disposition Patient Disposition: Home Condition: Good Discharge Details Reason For Visit: Screening colonoscopy Attending Provider: Eugenio Littlejohn Primary Care Provider: Hesham Coronel Home Meds and New Rx's Prescriptions: Continued rosuvastatin 10 mg tablet 10 mg PO DAILY Qty: 90 3RF sildenafil 100 mg tablet 100 mg PO DAILY PRN (Reason: sexual activity) Qty: 90 3RF Rx Instructions: administer 30 minutes to 4 hours before activity methocarbamol 750 mg tablet 750 mg PO TID Qty: 90 0RF Discontinued bisacodyl 5 mg tablet,delayed release (DR/EC) 5 mg PO ONCE Qty: 4 0RF Rx Instructions: Per Colonoscopy bowel prep instructions polyethylene glycol 3350 17 gram/dose powder 238 g PO ONCE Qty: 238 0RF Rx Instructions: For Colonoscopy bowel prep, as directed by office Discharge Instructions Additional Instructions: 1. If tolerated, consume a soft, low fiber diet for 1-2 days. [address] Do not drive, drink alcohol, operate machinery, make critical decisions, or do activities that require coordination or balance for 24 hours. 3. Because air was put into your colon during the procedure, expelling air from your rectum (passing gas or farting) is normal. 4. You may not have a bowel movement for 1-3 days because of the colonoscopy prep. This is normal. 5. Go directly to the emergency room if you notice any of the following: Develop chills (warm to touch), or if you have a thermometer and your temperature is above 101 Difficulty breathing or difficultly swallowing Persistent vomiting Severe abdominal pain, other than gas cramps Severe chest pain Black, tarry stools Any bleeding – exceeding one tablespoon 6. Call your physician if the site where your intravenous was started becomes red, swollen, painful, and warm to touch. 7. Your physician has reviewed your pre-procedure medications. Please continue to take those medications as previously ordered. You will be given specific information/education regarding any changes to your medications before leaving. Stand Alone Forms: Portal Information Activity:: Activity as Tolerated Diet:: As Tolerated DS: Diagnosis Discharge Diagnosis (1) Encounter for screening colonoscopy: Status: Acute
--- NOTE | 2025-03-09 15:07 | W.COLOREPORT ---
Date of service: 03/10/25 Colonoscopy Report Date of procedure: 03/10/25 Pre-op diagnosis general: Screening colonoscopy Procedure: Colonoscopy Surgeon: Eugenio Littlejohn Anesthesia Type: General:No Airway Complications: None Disposition: same day Indications: Cj is a 59-year-old man who needs a routine screening colonoscopy as part of basic healthcare maintenance Prep: Miralax/Dulcolax
[2025-03-10 08:31] VITALS: BP 140/106; PULSE 68; RESP 16; TEMP 36.3; O2SAT 96
--- NOTE | 2025-03-10 08:41 | W.ANESPRE ---
General Info Date of Service Date Performed: 03/10/25 Height: 6 ft Weight: 94.3 kg Body Mass Index (BMI): 28.2 Surgical Procedure: Operation Date: 03/10/25 09:20 Proposed Procedure Side Surgeon p Colonoscopy Eugenio Littlejohn MD Meds Allergies and Home Medications Allergies Allergy/AdvReac Type Severity Reaction Status Date / Time atorvastatin AdvReac Mild muscle Verified 02/18/25 14:02 soreness Home Medication Medication Instructions Recorded sildenafil 100 mg tablet 100 mg PO DAILY PRN sexual 06/30/24 activity #90 tabs rosuvastatin 10 mg tablet 10 mg PO DAILY #90 tabs 11/03/24 methocarbamol 750 mg tablet 750 mg PO TID #90 tabs 12/10/24 Current Visit Medications: Current Medications Generic Name Dose Route Start Last Admin Trade Name Freq PRN Reason Stop Dose Admin Ringer's Solution 1,000 mls @ 80 mls/hr 03/10/25 06:00 IV 03/10/25 23:59 INFUSION MANOLO Sodium Chloride 0 ml 03/10/25 06:00 Normal Saline Flush 10 Ml Syr IV 03/10/25 23:59 PRN PRN Sodium Chloride 0 ml 03/10/25 06:00 Normal Saline 10 Ml Vial IJ 03/10/25 23:59 DIRECTED PRN Sterile Water 0 ml 03/10/25 06:00 Water,Injection,Sterile 10 Ml Vial IJ 03/10/25 23:59 DIRECTED PRN PFSH Active Problems Active Problems: Problem Status Onset Code Encounter for screening colonoscopy Acute Z12.11 Rheumatoid arthritis Chronic M06.9 Seborrheic keratoses Acute L82.1 Hyperlipidemia Acute E78.5 Essential hypertension Acute I10 Psoriasis Chronic L40.9 Family history of early CAD Acute Z82.49 Medical History Medical History Abnormal skin growth Screening for malignant neoplasm of skin Plantar fascia syndrome Degenerative joint disease of left hip Cardiomyopathy Per pt.states this was stress related and is fine now Alopecia Combined hyperlipidemia father 66 [place] Surgical History Surgical History History of colonoscopy (~02/2024) History of left hip replacement Status post arthroscopy of right knee Tobacco Smoking/Tobacco Use Status: Former Tobacco Use Passive smoking exposure: No Alcohol Alcohol Intake: current Alcohol intake frequency: a few times a month Alcohol type: beer Substance Use Substance use: Daily Substance use type: marijuana Details: uses gummies to assist with sleep Vital Signs and Lab Results Vital Signs Most Recent Vital Signs in EMR: Most Recent Vital Signs Temp Pulse Resp BP Pulse Ox 36.3 C L 68 16 140/106 H 96 03/10/25 08:31 03/10/25 08:31 03/10/25 08:31 03/10/25 08:31 03/10/25 08:31 Imaging and Studies Imaging and Studies Study information below may be from another EMR and interpreted by another provider. Please see original notes in EMR for more complete details. Stress Test Summary: 06/12/18: Myocardial perfusion: Imaging information: gated. Left ventricular size is normal. No myocardial perfusion defects noted. Ventricular Function (Wall Motion): The calculated left ventricular ejection fraction after stress: 42%. LV global systolic function is mild to moderately reduced. Diffuse left ventricular regional motion abnormalities. Echocardiogram Summary: 06/21/18: *STUDY CONCLUSIONS* Summary: 1. Left ventricle: The cavity size was normal. Wall thickness was normal. Systolic function was at the lower limits of normal. The estimated ejection fraction was 50-55%. Wall motion was normal; there were no regional wall motion abnormalities. 2. Right ventricle: The cavity size was normal. Systolic function was normal. 3. Aortic valve: There was trivial regurgitation. 4. Mitral valve: Mildly calcified annulus. Mildly thickened leaflets. There was mild regurgitation. 5. Pulmonary arteries: Pulmonary systolic pressure was within the normal range, in the range of 25mm Hg to 30mm Hg. 6. Inferior vena cava: The vessel was patent and normal in size. The respirophasic diameter changes were in the normal range (greater than or equal to 50%), consistent with normal central venous pressure. Anesthesia Assessment and Plan Anesthesia History Personal History: No History of Anesthesia Complications Family History: No Family History of Anesthesia Complications Exercise Tolerance Exercise Tolerance: Metabolic Equivalents>4 Cardiac & Pulmonary Exam Cardiac Exam: Normal S1/S2 Heart Sounds Pulmonary Exam: Clear Bilateral Breath Sounds Implantable Cardiac Device Does patient have a Pacemaker or an ICD?: No Airway Exam Known Difficult Airway: No Mallampati Class: 1 Mouth Opening: Normal (> 3cm) Thyromental Distance: Greater than 3 cm Neck Range of Motion: Full ROM Neck Circumference: Normal Teeth Condition: Normal Dentition ASA Classification Emergency Case?: No NPO Status NPO Status: NPO Clears >2 hours, Solids >8 hours Anesthesia Plan Resuscitation Status: Full Code Anesthesia Technique: General Anesthesia Airway Planned: Natural Airway Monitors Used: Standard Monitors
[2025-03-10] MEDS: Lactated Ringers 1,000 ML 80 ML IV (08:44)
[2025-03-10 08:47] VITALS: BP 150/105
--- NOTE | 2025-03-10 09:04 | NUR.NOTE ---
Pt very anxious and sweating . Pt c/o nausea headache. B/P 150/105. This film writer requested to pt to let Anesthesia give him nausea medicine and once consents are signed she can give him something for his anxiety so he could tolerate procedure. Anesthesia in room notifying pt what medications she can administer to help pt proceed. Pt declined and wants to cancel procedure. IV removed. pt dressed and left facility with ride. Nursing Note:
== END 2025-03-10 08:18 | disposition home or self-care (01) ==
LOC: SUR 08:18
PROVIDERS: PCP Nurse Practitioner Family; Visit Provider Surgery
DX: Z53.9 Procedure and treatment not carried out, unspecified reason (principal)
CPT/HCPCS: J2003; J2704